=== PATIENT | female | born 1970 | race Caucasian/White ===

== ENCOUNTER 2017-04-17 08:00 | Emergency (ER) | payer OTHER ==
[2017-04-17] VITALS (8 sets, daily range): BP systolic 99–143; BP diastolic 64–83; PULSE 67–94; RESP 13–16; O2SAT 96–100
[~2017-04-17] VITALS: Ht 175.3 cm; Wt 72.7 kg
--- NOTE | 2017-04-17 08:12 | ED.REPORT ---
HPI-GI Bleed Date of Service April 17, 2017 ED Provider: Monico Zambrano DO The patient is a 46 year old female w/ a hx of ulcer and lap band surgery who presents to the ED accompanied by her due to dark, coffee ground vomit for the past 3 days. She had a lap-band surgery 3 years ago in [place]. She had the band loosened a few weeks ago. The pt has not been able to eat or drink anything for several days. Her noticed that she has been getting sick when she tries to eat. She has vomited blood before several years ago when she had a bleeding ulcer. The pt is on protonics, but has not been taking them regularly. Pt says that her coworkers have commented that she has, "not eaten or drank anything for several weeks." Nursing Notes Stated Complaint: ABD PAIN Chief Complaint: Female Abdominal Pain Nursing Notes Reviewed: Yes Allergies: Coded Allergies: No Known Allergies (Unverified , 04/17/17) Scheduled PRN Ondansetron ODT (Zofran ODT) 4 Mg Tablet 4 MG PO Q4H PRN PRN For Nausea General Time Seen by Provider: 08:16 Chief Complaint Chief Complaint: Vomiting coffee grounds Hx Obtained From: Patient Arrived By: Walk-in Onset Occurred: 3 days ago Symptom Duration: Since onset Recent Healthcare: Recent doctor visit, Previous surgery Similar Sx Previous: Yes Past Medical History Past Medical History sciatica Past Surgical History lap-band surgery Smoking History Never Smoker Social History Alcohol Use: Denies alcohol use Drug Use: Denies drug use Review of Systems Review of Systems Note: decreased appetite decreased fluid intake Constitutional: Reports: Fatigue GI: Reports: Nausea, Vomiting Neurologic: Denies: Change LOC Complete sys rev & neg: except as marked. Physical Exam Initial Vital Signs Vital Signs (First) Date Time Temp Pulse Resp B/P Pulse Ox O2 Delivery O2 Flow Rate FiO2 04/17/17 08:03 36.4 75 15 99 Room Air 04/17/17 10:00 127/80 Initial VS: Reviewed General/Constitutional: Awake, Alert, Cooperative Appearance / Presentation: Positive: Pale appears dehydrated no palor Respiratory / Chest: Atraumatic, Breath sounds NL, Breath sounds = bilat Cardiovascular: Heart rate NL, Regular rhythm, Heart sounds NL Tenderness/Guarding/Rebound: Positive: Tender LUQ..., Tender RUQ... Rectum / Perineum: Atraumatic Head / Eyes: Normocephalic, PERRL Skin Skin: Warm, Dry Neurologic: Oriented X3, Speech NL, No motor deficits Back: Atraumatic, Full range of motion Upper Extremity / MS: Full range of motion, No swelling, No deformity Lower Extremity / Pelvis / MS: Full range of motion, No swelling, No deformity Ankle / Foot: Full range of motion, No swelling, No deformity Interpretation & Diagnostics Lab Results Interpretation Result Diagram: 04/17/17 0905 04/17/17 0905 Test 04/17/17 09:05 White Blood Count 6.3th/mm3 (3.8-10.1) Red Blood Count 5.43mil/mm3 (3.90-5.20) Hemoglobin 17.2g/dL (12.0-15.6) Hematocrit 50.1% (35.0-46.0) Mean Corpuscular Volume 92.3fL (81-100) Mean Corpuscular Hemoglobin 31.7pg (27.0-35.0) Mean Corpuscular Hemoglobin Concent 34.3% (32.0-37.0) Red Cell Distribution Width 12.7% (12.3-15.4) Platelet Count 276bil/L (150-400) Neutrophils (%) (Auto) 75.3% (40-74) Lymphocytes (%) (Auto) 15.7% (14-46) Monocytes (%) (Auto) 8.1% (4-12) Eosinophils (%) (Auto) 0.2% (0-5) Basophils (%) (Auto) 0.5% (0-3) Prothrombin Time 10.9sec (8.1-12.5) Prothromb Time International Ratio 1.02ratio Sodium Level 143mEq/L (134-144) Potassium Level 3.5mEq/L (3.5-5.2) Chloride Level 100mEq/L (97-108) Carbon Dioxide Level 26mmol/L (18-29) Blood Urea Nitrogen 9mg/dL (6-24) Creatinine 0.58mg/dL (0.57-1.00) Estimat Glomerular Filtration Rate 160mL/min (>59) Glucose Level 112mg/dL (60-99) Calcium Level 10.0mg/dL (8.5-10.1) Magnesium Level 2.2mg/dL (1.6-2.6) Total Bilirubin 1.1mg/dL (0.0-1.2) Aspartate Amino Transf (AST/SGOT) 18U/L (0-50) Alanine Aminotransferase (ALT/SGPT) 14U/L (0-32) Alkaline Phosphatase 55U/L (25-150) Total Protein 7.0g/dL (6.4-8.4) Albumin 4.2g/dL (3.4-5.0) Hold Bajwa Top Tube Received (Received) ECG Interpretation ECG Interpretation: sinus arrhythmia (rate 71) nonspecific ST changes Time: 08:34 Interpreted by: ED physician CT Abd / Pelvis Interpretation IMPRESSION: 1. Thickening of the gastric antrum, consistent with peptic ulcer disease. Endoscopy recommended to exclude the less likely possibility of neoplasm. 2. Focal low density within the medial segment left hepatic lobe anteriorly. Differential considerations include focal fatty infiltration versus underlying neoplasm. Liver protocol MRI with and without intravenous contrast recommended for further assessment. 3. Bilateral sacroiliitis. 4. Appendix not seen. No evidence of appendicitis. Dictated by: Gabbie Lara M.D. on 04/17/2017 at 11:46 Approved by: Gabbie Lara M.D. on 04/17/2017 at 11:50 Study type: Abdominal CT no contrast Interpretation / Wet Read by: Interpret - Radiologist Procedures Procedure Notes: Lap Band Drainage: Risks benefits and alternatives discussed with the patient. She verbally consented to the procedure. Dr. Juan Francisco Colindres came to ED and performed procedure at 1435 [address] is identified in the left midabdomen, under sterile conditions after 3 rounds of ChloraPrep, 2 attempts were made using a sterile Anaya needle and were unable to obtain any fluid. Another sterile attempt using a 21 gauge 1.5 inch needle was performed in 0.5 mL's of clear fluid was obtained. Sterile dressing applied. Patient tolerated procedure well. She is going to try a PO trial Re-Eval/Medical Decision Med Decision/Clinical Course Ultimately this patient is having complications with her lap band. There is evidence on CAT scan of probably an ulcer without free fluid or other perforation. After discussion with both her doctor in [place] and a on-call bariatric surgeon at [place], and the general surgeon on-call at [facility]. The lap band port was accessed and drained under sterile conditions by our general surgeon, Juan Francisco Colindres. Re-Evaluation/Progress #1: Time of Eval: 10:03 Re-Evaluation/Progress Note: Pt rechecked. Labs are normal. Plan to get catscan and speak to surgeon in [place]. Pt drank some contrast and vomited it back up. Recommmend that pt be transferred to bariatric surgery. Re-Evaluation/Progress #2: Time of Eval: 12:39 Re-Evaluation/Progress Note: Pt rechecked. Informed pt of Dr. Eden's recommendation to be transferred to bariatric surgery. She does not want to be transferred to a facility and wants to wait for her appointment with Dr. Eden at 1030am tomorrow morning. Consultation #1: Referral / Consult Name: Juan Francisco Colindres MD Consulted With: Surgeon Call Returned at: 12:23 Note: Case discussed. Consultation #2: Call Returned at: 12:31 Note: Case discussed with Dr. Maulik Eden, internal medicine. Pt needs to have lapband drained. Consultation #3: Call Returned at: 13:30 Note: Case discussed with Dr. Chase Singletary, bariatric surgery at [facility]. Recommends draining the lap band in the ED. If drainage doesn't solve the problem, then the pt could be transferred. Consultation #4: Referral / Consult Name: Juan Francisco Colindres MD Consulted With: Surgeon Call Returned at: 13:47 Note: Dr. Colindres says he'll come to the ED and try to drain the lap band himself. Counseled Regarding: Diagnosis, Lab results, Need for follow-up, When/why to return to ED Discharge & Departure Impression: Primary Impression: Vomiting Vomiting type: unspecified Vomiting Intractability: unspecified Nausea presence: unspecified Qualified Code: R11.10 - Vomiting, unspecified Disposition: Home Discharge Condition All VS Reviewed: Yes Condition: Stable Additional Instructions: Thank you for entrusting us with your care today. Follow through with your appointment with Dr. Eden tomorrow morning. Return to the Emergency Department for any new or worsening symptoms. I hope you feel better soon! Referrals: [facility] Scribe Attestation Portion of this note were transcribed by Loretta Flak. I, Dr. Zambrano, personally performed the history, physical exam, and medical decision-making: I reviewed and confirmed the accuracy for the information in the transcribed note. Signed by: janee Garcia, 04/17/17 1400 copies to: [facility] Monico Zambrano DO April 17, 2017 08:12 Loretta Falk April 17, 2017 08:23
[2017-04-17] MEDS ORDERED: 0.9% Sodium Chloride 1,000 ML IV ONE ×2 (08:24→09:40)
[2017-04-17] MEDS ORDERED: Pantoprazole 4 mg/mL 10 mL Inj IVPUSH ONE (08:25)
[2017-04-17] MEDS ORDERED: Pantoprazole Inj 80 MG, Pharmacy To Mix 1 EA in 0.9% Sodium Chloride 80 ML IV ONE ×2 (08:25)
[2017-04-17] MEDS ORDERED: Iohexol 300 mg/mL 30 mL Inj PO ONE (08:25)
[2017-04-17] MEDS ORDERED: Ondansetron 2 mg/mL 2 mL Inj IVPUSH PRN (08:35)
[2017-04-17] MEDS ORDERED: Promethazine Inj 25 MG in 0.9% Sodium Chloride-Pha MIX 100 ML IV ONE (09:25)
[2017-04-17 09:26] LABS: BASOPHILS % (AUTO) 0.5 % (0-3); EOSINOPHILS % (AUTO) 0.2 % (0-5); MONOCYTES % (AUTO) 8.1 % (4-12); Mean Corpuscular Hemoglobin 31.7 pg (27.0-35.0); Mean Corpuscular Volume 92.3 fL (81-100); NEUTROPHILS % (AUTO) 75.3 % (40-74); Platelet Count 276 bil/L (150-400)
[2017-04-17 09:42] LABS: INR 1.02 ratio
[2017-04-17 09:49] LABS: Magnesium 2.2 mg/dL (1.6-2.6)
--- NOTE | 2017-04-17 11:52 | DRSVH ---
PROCEDURE: CT ABDOMEN AND PELVIS WITH CONTRAST ([id number]) INDICATIONS: persistent vomiting, h/o lap band TECHNIQUE: After the administration of oral and intravenous contrast, 5 mm thick sections acquired from the diap hragms to the symphysis. 5 mm thick coronal and sagittal reformats were performed. For radiation do se reduction, the following was used: automated exposure control, adjustment of mA and/or kV accordi ng to patient size. COMPARISON: None. FINDINGS: Image quality: Excellent. ABDOMEN: Lung bases: Lung bases are clear. Heart size is normal. Solid organs: Liver and spleen are normal in size. Ill-defined low-density within the medial segment left hepatic lobe anteriorly is present, measuring 35 mm. Gallbladder is within normal limits. Bili adrienne system is non-dilated. Pancreas enhances normally. No adrenal nodules. Kidneys are normal in s ize and enhancement, without hydronephrosis. Peritoneum and bowel: A gastric lap band is present. There is moderate thickening of the gastric ant rum. Small bowel is within normal limits. Appendix is not seen. No evidence of appendicitis. Colon is nondistended. No free fluid or air. Nodes and vessels: No retroperitoneal or mesenteric adenopathy. Aorta and inferior vena cava are no rmal in caliber. Miscellaneous: No ventral hernias. PELVIS: Genitourinary: Bladder wall thickness is normal. An intrauterine device is present. Miscellaneous: No inguinal hernias or adenopathy. Bones: No suspicious bony lesions. Subchondral sclerosis involves the bilateral sacroiliac joints. N o vertebral body compression fractures. IMPRESSION: 1. Thickening of the gastric antrum, consistent with peptic ulcer disease. Endoscopy recommended to e xclude the less likely possibility of neoplasm. 2. Focal low density within the medial segment left hepatic lobe anteriorly. Differential considerati ons include focal fatty infiltration versus underlying neoplasm. Liver protocol MRI with and without intravenous contrast recommended for further assessment. 3. Bilateral sacroiliitis. 4. Appendix not seen. No evidence of appendicitis. Dictated by: Gabbie Lara M.D. on 04/17/2017 at 11:46 Approved by: Gabbie Lara M.D. on 04/17/2017 at 11:50
[2017-04-17] MEDS ORDERED: ProchlorPERazine 5 mg/mL 2 mL Inj IVPUSH ONE (11:55)
[2017-04-17] MEDS ORDERED: ONDA4TAB9 PO (15:21)
== END 2017-04-17 16:44 | disposition home or self-care (01) ==
LOC: SED 08:00
DX: R11.10 Vomiting, unspecified (principal); K27.9 Peptic ulcer, site unspecified, unspecified as acute or chronic, without hemorrhage or perforation; Z98.84 Bariatric surgery status
CPT/HCPCS: 36415; 74177; 80053; 83735; 85025; 85610; 93005; 96361; 96374; 96375; 96376; 99285; J2270; J2405; J2550; J7030; Q9967

== ENCOUNTER 2017-07-11 17:41 | Inpatient (IN) | payer OTHER ==
[~2017-07-11] VITALS: Ht 170.2 cm; Wt 65.6 kg
[~2017-07-11 17:41] MED LIST: ONDA4TAB9 PO
[2017-07-11 17:46] VITALS: BP 121/87; PULSE 88; RESP 15; O2SAT 100
[2017-07-11] MEDS ORDERED: 0.9% Sodium Chloride 1,000 ML IV ONE (18:29)
--- NOTE | 2017-07-11 18:29 | ED.REPORT ---
HPI-Abd Pain F 40 and Over Date of Service Jul 11, 2017 ED Provider: Dr. León The pt is a 46 y/o female with a hx of gastric ulcers and lap band surgery who presents to the ED complaining of burning 9/10 abdominal pain, onset yesterday. Associated sx include weakness, dark coffee ground vomit with hematemesis today, lack of appetite and fluid intake. Nursing Notes Stated Complaint: PAIN AND DEHYDRATION,ULCERS Chief Complaint: Female Abdominal Pain Nursing Notes Reviewed: Yes Allergies: Coded Allergies: No Known Allergies (Unverified , 07/11/17) Scheduled Bupropion ER (Bupropion ER) 300 Mg Tab.er.24h 300 MG PO DAILY Fentanyl 50 mcg/hr Patch (Fentanyl 50 mcg/hr Patch) 50 mcg/hr Patch.td72 1 PATCH TOP Q2DAY Pantoprazole DR (Pantoprazole DR) 40 Mg Tablet.dr 40 MG PO BIDAC Scheduled PRN Hydromorphone (Hydromorphone) 8 Mg Tablet 4-8 MG PO BID PRN PRN BREAKTHROUGH PAIN Zolpidem (Zolpidem) 10 Mg Tablet 10 MG PO HS PRN PRN SLEEP General Time Seen by MD: 18:28 Chief Complaint Abdominal pain Hx Obtained From: Patient Arrived By: Walk-in Sudden in Onset?: Yes Onset Occurred: Yesterday Symptom Duration: Since onset Location: : Diffuse Quality: Burning Radiation: : Does not radiate Severity: Current: Pain level 9 out of 10 Severity: Maximum: Severe Recent Healthcare: Recent doctor visit Similar Sx Previous: Yes Past Medical History Past Medical History sciatica gastric ulcer Past Surgical History lap-band surgery Smoking History Never Smoker Social History Alcohol Use: "Social" Drug Use: Denies drug use Ambulatory Status Independent Review of Systems Reports: lack of appetite and fluid intake Constitutional: Reports: Weakness - generalized GI: Reports: Abdominal pain, Hematemesis, Vomiting Complete sys rev & neg: except as marked. Physical Exam Vital Signs Vital Signs (First) Date Time Temp Pulse Resp B/P Pulse Ox O2 Delivery O2 Flow Rate FiO2 07/11/17 17:46 36.9 88 15 121/87 100 Room Air Initial VS: Reviewed Head / Eyes: Atraumatic, Normocephalic Extremities: Vascular intact, Neuro intact, No swelling, No tenderness Skin: Warm, Dry, No cyanosis Neurologic: Alert, Oriented, Nonfocal General/Constitutional: Awake, Alert Distress / Hydration: Positive: Distress mild Weak Respiratory / Chest: Atraumatic, Breath sounds NL, Breath sounds = bilat, No respiratory distress, No rales, No rhonchi, No wheezing Cardiovascular: Heart rate NL, Regular rhythm, Heart sounds NL, No gallop, No murmurs, No rubs Abdomen: Atraumatic, Soft, No guarding, No rebound Tenderness/Guarding/Rebound: Positive: Tender diffuse Back: Atraumatic, Full range of motion, Painless range of motion Interpretation & Diagnostics Lab Results Interpretation Result Diagram: 07/11/17191907/11/171919 Test 07/11/17 19:20 White Blood Count 4.6th/mm3 (3.8-10.1) Red Blood Count 4.97mil/mm3 (3.90-5.20) Hemoglobin 16.3g/dL (12.0-15.6) Hematocrit 48.4% (35.0-46.0) Mean Corpuscular Volume 97.4fL (81-100) Mean Corpuscular Hemoglobin 32.8pg (27.0-35.0) Mean Corpuscular Hemoglobin Concent 33.7% (32.0-37.0) Red Cell Distribution Width 13.6% (12.3-15.4) Platelet Count 272bil/L (150-400) Neutrophils (%) (Auto) 64.3% (40-74) Lymphocytes (%) (Auto) 25.5% (14-46) Monocytes (%) (Auto) 8.6% (4-12) Eosinophils (%) (Auto) 0.9% (0-5) Basophils (%) (Auto) 0.7% (0-3) Prothrombin Time 10.3sec (8.1-12.5) Prothromb Time International Ratio 0.96ratio Sodium Level 143mEq/L (134-144) Potassium Level 4.1mEq/L (3.5-5.2) Chloride Level 103mEq/L (97-108) Carbon Dioxide Level 25mmol/L (18-29) Blood Urea Nitrogen 8mg/dL (6-24) Creatinine 0.44mg/dL (0.57-1.00) Estimat Glomerular Filtration Rate 220mL/min (>59) Glucose Level 86mg/dL (60-99) Lactic Acid Level 1.7mmol/L (0.4-2.0) Calcium Level 9.4mg/dL (8.5-10.1) Magnesium Level 2.3mg/dL (1.6-2.6) Total Bilirubin 0.8mg/dL (0.0-1.2) Aspartate Amino Transf (AST/SGOT) 20U/L (0-50) Alanine Aminotransferase (ALT/SGPT) 13U/L (0-32) Alkaline Phosphatase 56U/L (25-150) Total Protein 6.8g/dL (6.4-8.4) Albumin 4.1g/dL (3.4-5.0) Lipase 19U/L (13-60) Serum Coags Interpretation Coags all normal CT Abd / Pelvis Interpretation Moderate hiatal hernia with the lap band around the gastric fundus rather than at the gastroesophageal junction which is above the diaphragm. Mildly dilated common bile duct at 9mm with minimal intrahepatic biliary dilatation. No radiopaque stones identified. This may be chronic. Correlate with lab values. Ultrasound may be worthwhile for further evaluation. Signed by Dr. Yamil Mendez 07/11/17 23:28 CBC Interpretation CBC normal except (Hgb high and Hct high) BMP / CMP Interpretation BMP/CMP normal except (low creatinine ) Re-Eval/Medical Decision Source of Hx: Old records Re-Evaluation/Progress : Time of Eval: 21:55 Patient Status: Moderate relief Re-Evaluation/Progress Note: Rechecked pt. Discussed lab results,diagnosis and plan to admit. Pt understands and agrees with the plan for admission. All questions addressed. Consultation #1: Referral / Consult Name: Rafat Ohcoa MD Call Returned at: 20:25 Service Delivery Supervisor: Will see patient, Agrees with eval, Agrees with plan Note: Recommended CT, consulting surgery and admit. He will consult. Consultation #2: Referral / Consult Name: Dusty Kenny MD Consulted With: Hospitalist Call Returned at: 20:51 Service Delivery Supervisor: Will see patient, Agrees with eval, Agrees with plan, Accepts admit Consultation #3: Referral / Consult Name: Mehdi Carbajal MD Consulted With: Surgeon Call Returned at: 01:23 Service Delivery Supervisor: Will see patient, Agrees with eval, Agrees with plan Counseled Regarding: Diagnosis, Lab results, Need for admission Discharge & Departure Primary Impression: Upper GI bleed Additional Impression: Abdominal pain Abdominal location: epigastric Qualified Code: R10.13 - Epigastric pain Disposition: ADMITTED TO HOSPITAL Referrals: [facility] Scribe Attestation Portions of this note were transcribed by Fritz Rosado. I,, personally performed the history,physical exam and medical decision-making;I reviewed and confirmed the accuracy of the information in the transcribed note. Signed by Silva Garcia. 07/11/17 Sameer León DO Jul 11, 2017 18:28 Fritz Rosado Jul 11, 2017 18:35
[2017-07-11] MEDS ORDERED: Ondansetron 2 mg/mL 2 mL Inj IVPUSH PRN (18:30)
[2017-07-11] MEDS ORDERED: Pantoprazole 4 mg/mL 10 mL Inj IVPUSH ONE (18:30)
[2017-07-11 19:31] LABS: BASOPHILS % (AUTO) 0.7 % (0-3); EOSINOPHILS % (AUTO) 0.9 % (0-5); MONOCYTES % (AUTO) 8.6 % (4-12); Mean Corpuscular Hemoglobin 32.8 pg (27.0-35.0); Mean Corpuscular Volume 97.4 fL (81-100); NEUTROPHILS % (AUTO) 64.3 % (40-74); Platelet Count 272 bil/L (150-400)
[2017-07-11] MEDS ORDERED: Promethazine 25 mg/mL Inj ONE (19:32)
[2017-07-11] MEDS: HYDROmorphone 0.5 mg/0.5 mL iSecure Syringe IVPUSH PRN (19:44)
[2017-07-11 19:45] LABS: INR 0.96 ratio
[2017-07-11 19:52] LABS: Magnesium 2.3 mg/dL (1.6-2.6)
[2017-07-11 20:30] VITALS: BP 128/84; PULSE 92; RESP 15; O2SAT 100
[2017-07-11] MEDS ORDERED: Iohexol 300 mg/mL 30 mL Inj PO ONE (22:00)
[2017-07-11] MEDS ORDERED: BUPR-97 PO (22:07)
[2017-07-11] MEDS ORDERED: HYDR8TAB PO (22:07)
[2017-07-11] MEDS ORDERED: PANT40TA3 PO (22:07)
[2017-07-11] MEDS ORDERED: FENT1PAT9 TOP (22:07)
[2017-07-11] MEDS ORDERED: BUPR300T52 PO (22:07)
[2017-07-11] MEDS ORDERED: ZOLP10TA5 PO (22:07)
[2017-07-11 22:30] VITALS: BP 130/88; PULSE 96; RESP 15; O2SAT 100
[2017-07-11 23:10] LABS: APPEARANCE,URINE TURBID (CLEAR,HAZY); COLOR,URINE YELLOW (YELLOW); OCCULT BLOOD,URINE NEGATIVE (NEGATIVE); PH,URINE 7.5 (5.0-8.0); UROBILINOGEN,URINE 2 mg/dL (NORMAL)
[2017-07-12] VITALS (11 sets, daily range): BP systolic 116–166; BP diastolic 66–110; PULSE 65–97; RESP 10–21; O2SAT 98–100
[2017-07-12] MEDS: HYDROmorphone 0.5 mg/0.5 mL iSecure Syringe IVPUSH PRN (00:25)
[2017-07-12] MEDS ORDERED: Alum-Mag Hydrox-Simeth 30 mL Suspension PO PRN (02:30)
[2017-07-12] MEDS ORDERED: Polyethylene Glycol (PEG) 17 Gm Powder PO PRN (02:30)
[2017-07-12] MEDS ORDERED: Pantoprazole Inj 80 MG in 0.9% Sodium Chloride 80 ML IV SCH (02:35)
--- NOTE | 2017-07-12 02:42 | PCM.HPMED ---
Subjective Date of Service Jul 12, 2017 Primary Provider: Admitting Physician: Dusty Kenny MD Primary Care Physician: Nopal Attending Physician: Dusty Kenny MD Chief Complaint: Abdominal pain History of Present Illness: Alyx Muñoz is a 46-year-old female with a history of gastric ulcers and lap band placement who presented to the emergency department complaining of abdominal pain that started yesterday. She says the pain is a burning sensation , rated 9 out of 10, in the upper quadrants of her abdomen. She reports feeling fatigued and weak throughout the past week, and has had a decrease in appetite and fluid intake for a couple months. She decided to come to the ED after an episode of dark coffee-ground emesis. She denies any fevers/chills, chest pain, palpitations, shortness of breath, diarrhea, melena, or hematochezia. Review of Systems: A complete review of systems was obtained and negative except as in the history of present illness. Allergies Coded Allergies: No Known Allergies (Unverified , 07/11/17) Home Medications Bupropion ER (Bupropion ER) 300 Mg Tab.er.24h 300 MG PO DAILY Fentanyl 50 mcg/hr Patch (Fentanyl 50 mcg/hr Patch) 50 mcg/hr Patch.td72 1 PATCH TOP Q2DAY Pantoprazole DR (Pantoprazole DR) 40 Mg Tablet.dr 40 MG PO BIDAC Scheduled PRN Hydromorphone (Hydromorphone) 8 Mg Tablet 4-8 MG PO BID PRN PRN BREAKTHROUGH PAIN Zolpidem (Zolpidem) 10 Mg Tablet 10 MG PO HS PRN PRN SLEEP PMH Gastric ulcer Depression Sciatica Surgical History Lap band surgery Family History Father of alcoholism related issues. Mother is alive and healthy. Social History Occupation: manager event Hx Alcohol Use: Yes (social) Hx Substance Use: No Hx Tobacco Use: No Smoking Status: Never Smoker Living Arrangement: with Family Exam Vital Signs Vital Sign - Last Date Time Temp Pulse Resp B/P Pulse Ox O2 Delivery O2 Flow Rate FiO2 07/11/17 22:30 36.9 96 15 130/88 100 Room Air Intake and Output 07/11/17 07/11/17 07/12/17 Cumulative From/Thru 15:00 23:00 07:00 07/11/17 17:46 - 07/11/17 19:24 Intake Total 2000 ml 2000 ml Balance 2000 ml 2000 ml Intake IV Total 2000 ml 2000 ml Exam Gen.: Age-appropriate female lying in bed in no acute distress HEENT: NCAT, PERRLA, EOMI. Membranes pink but dry. No exudate or cobblestoning present. Neck: Supple, no JVD or thyromegaly CV: Regular rate and rhythm no murmurs, rubs, gallops. Pulmonary: Clear to auscultation bilaterally, no wheezes, rales, rhonchi. Abd: Soft, diffusely tender to palpation. Bowel sounds present throughout. No rebound or guarding. Extremities: No edema, cyanosis, clubbing. Neuro: AOx3. CN II through 12 intact. Muscle strength 4-5 globally, without focal deficit. Psych: Normal mood and affect. Lab and Diagnostics Result Diagram: 07/11/17191907/11/171919 Microbiology Urine culture pending X-Rays, CTs and MRIs Abdominal CT 07/11/17 Moderate hiatal hernia with the lap band around the gastric fundus rather than at the gastroesophageal junction which is above the diaphragm. Mildly dilated common bile duct at 9mm with minimal intrahepatic biliary dilatation. No radiopaque stones identified. This may be chronic. Correlate with lab values. Ultrasound may be worthwhile for further evaluation. Signed by Dr. Yamil Mendez 07/11/17 23:28 Assessment & Plan Alyx Muñoz is a 46-year-old female with a history of gastric ulcers and lap band placement who presented to the emergency department complaining of abdominal pain that started yesterday with one episode of coffee-ground hematemesis. Upper GI bleed, present on admission. Acute. Ongoing. - Likely due to gastric ulcers with her history, but there is a question of lap band placement/possible erosion - Patient is pantoprazole 40 mg twice a day with questionable compliance - Dr. Bell of Gastroenterology was consulted, appreciate his expertise - Dr. Garza of Surgery consulted, appreciate his expertise - Protonix drip ordered - NPO for now - H&H stable thus far; will trend with AM labs Abdominal pain, present on admission. Acute. Ongoing. - Likely due to gastric ulcers with her history, but there is a question of lap band placement/possible erosion - Continue home fentanyl patch - IV Dilaudid 0.5-1mg mg every 4h for breakthrough pain Depression, present on admission. Chronic. - Continue bupropion 300 mg daily when appropriate Sciatica, present on admission. Chronic. - Continue home fentanyl patch - Holding home PO Dilaudid; resume when appropriate Insomnia, present on admission. Chronic. - Continue zolpidem 10 mg at night when appropriate Acetaminophen as needed for mild pain, fever, headache. Bowel regimen as needed. Zofran for nausea as needed. Subcutaneous heparin held for GI bleed. SCDs ordered. Patient status: Patient was admitted to the inpatient service with likely length of stay >2 midnights due to severity of presenting symptoms, complex medical workup, and overall treatment plan. GI Prophylaxis: Proton Pump Inhibitor (Protonix drip) VTE Mechanical Devices: Intermittant Pneumatic CD Resuscitation Status: CPR: Attempt Resuscitation Attending Statement The patient was seen and examined together with Dr. Márquez on 07/12 and I agree with the history, exam and plan as outlined in the note above. Nacho Márquez DO Jul 12, 2017 02:42 Dusty Kenny MD Jul 12, 2017 04:07
[2017-07-12] MEDS: HYDROmorphone 0.5 mg/0.5 mL iSecure Syringe IVPUSH SCH ×5 (03:19→22:23)
[2017-07-12] MEDS: Ondansetron 2 mg/mL 2 mL Inj IVPUSH PRN ×2 (03:25→20:25)
[2017-07-12] MEDS: 0.9% Sodium Chloride 1,000 ML IV SCH ×4 (03:27→15:44)
[2017-07-12] MEDS: MetoCLOpramide 5 mg/mL 2 mL Inj IVPUSH PRN ×4 (04:02→21:17)
--- NOTE | 2017-07-12 04:27 | NUR ---
Admit to room 3009 with upper GI Bleed. Pain 10/, N/V. VSS, 98% O2 sat on RA, BP 136/88. Oriented to room and POC on whiteboard. Refusing SCD's, gave Dilaudid, Zofran, Reglan to good effect.
--- NOTE | 2017-07-12 04:31 | NUR ---
Med Rec completed in ED by pharmacist. No known allergies.
[2017-07-12 06:53] LABS: BASOPHILS % (AUTO) 0.7 % (0-3); MONOCYTES % (AUTO) 9.3 % (4-12); Mean Corpuscular Hemoglobin 33.4 pg (27.0-35.0); Mean Corpuscular Volume 99.2 fL (81-100); NEUTROPHILS % (AUTO) 66.4 % (40-74); Platelet Count 190 bil/L (150-400)
--- NOTE | 2017-07-12 07:23 | DRSVH ---
PROCEDURE: CT ABDOMEN AND PELVIS WITH CONTRAST ([id number]) INDICATIONS: abdominal pain, lap band TECHNIQUE: After the administration of intravenous contrast, 5 mm thick sections acquired from the diaphragm to the symphysis. 5 mm coronal and sagittal reformats were acquired. For radiation dose reduction, the following was used: automated exposure control, adjustment of mA and/or kV according to patient josafat boyer. COMPARISON: [facility], CT, CT ABD PELVIS W CON, 04/17/2017, 11:30. FINDINGS: Image quality: Excellent. ABDOMEN: Lung bases: Lung bases are clear. Heart size is normal. Solid organs: Wedge-shaped area of low density adjacent to the fissure for the ligamentum teres measu res 3.8 x 2.4 CM. Minimal intrahepatic biliary ductal dilatation with stable prominence of the extrah epatic bile duct. No obstructive lesion identified. The gallbladder is mildly distended but otherwise radiographically normal. The pancreas, spleen, adrenal glands and kidneys are normal. Uterus is pres ent with an IUD in place.. Peritoneum and bowel: Focal narrowing of the hepatic flexure of the colon may represent normal decomp ressed bowel. No finding was present at this site on the March 2017 study (se 2 im 33). Otherwise the c olon is normal. Lap band is present. There is greater than expected amount of stomach proximal to the band where oral contrast pools possibly placing the patient at risk for aspiration. Persistent gastr ic antrum thickening. Normal small bowel. Nodes and vessels: No retroperitoneal or mesenteric adenopathy by size criteria. Aorta and inferior vena cava are normal in size. Miscellaneous: No ventral hernias. PELVIS: Genitourinary: Bladder wall thickness is normal. Miscellaneous: No inguinal hernias or adenopathy. Bones: No suspicious bony lesions. No vertebral body compression fractures. IMPRESSION: 1. Gastric lap band has slipped distally with a resulting small hiatal hernia which contains oral con trast and may place the patient at risk for aspiration. 2. Wedge-shaped area of low-density liver most consistent with fatty infiltration of the liver. Under lying malignancy is unlikely. Recommend MRI with and without contrast for confirmation. 3. There is minimal intrahepatic biliary ductal dilatation with stable prominence of the extrahepatic bile duct. No obstructing lesion identified. MRCP could evaluate this finding if needed and could be performed at the same visit as the recommended abdominal MRI. 4. There are no discrepancies with the preliminary report. Dictated by: Musa Drake M.D. on 07/12/2017 at 7:12 Approved by: Musa Drake M.D. on 07/12/2017 at 7:21
[2017-07-12] MEDS ORDERED: fentaNYL-PF 50 mCg/mL 2 mL Inj IVPUSH PRN (08:40)
--- NOTE | 2017-07-12 09:25 | NUR ---
GI consult GI Dr. bartlett at bed side this morning. Carmella from endoscopy called and states," upper endoscopy scheduled for 1100 today, keep patient NPO." Report given to Carmella in endo. patient aware.
--- NOTE | 2017-07-12 10:36 | NUR ---
Off unit patient left unit at 1036 for upper endoscopy.
--- NOTE | 2017-07-12 11:08 | PCM.CHPMED ---
Subjective Date of Service: Jul 12, 2017 Primary Physician: Admitting Physician: Dusty Kenny MD Primary Care Physician: Adriel Attending Physician: Elyse Ramsey DO Admit Status: From the Emergency Department Chief Complaint: Chief Complaint: Abdominal pain History of Present Illness: Alyx Muñoz is a 46-year-old lady with a history of gastric ulcers and lap band placement who presented to the emergency department with the complaint of abdominal pain with coffee-ground emesis that started yesterday. She states that she has actually had intermittent abdominal pain with decreased appetite for several months. However, she notes that because she was loosing so much weight it was not bothersome to her. It wasn't until yesterday when the pain became more intense that she thought she better come in. Associated symptoms include fatigue, generalized weakness, decreased fluid intake and subjective chills. She denies chest pain, palpitations, diarrhea, melena or hematochezia. At presentation she was afebrile and vitals were normal. Labs including CBC, CMP , lipase and lactic acid were unremarkable. Abdominal CT showed a moderate hiatal hernia with the lap band around the gastric fundus rather than at the gastroesophageal junction and a mildly dilated common bile duct. Review of Systems: A comprehensive review of systems was conducted with the patient and found to be negative except as above in the History of Present Illness. PMH Past Medical History Gastric ulcer Depression Sciatica Surgical History Lap band surgery Home Medications Bupropion ER 300 MG PO DAILY Fentanyl 50 mcg/hr Patch 1 PATCH TOP Q2DAY Pantoprazole DR 40 MG PO BIDAC Hydromorphone 4-8 MG PO BID PRN BREAKTHROUGH PAIN Zolpidem 10 MG PO HS PRN SLEEP Allergies: Coded Allergies: No Known Allergies (Unverified , 07/11/17) Family History Family History Father of alcoholism related issues. Mother is alive and healthy. Social History Occupation: beauty shop manager Hx Alcohol Use: Yes (social)Hx Substance Use: NoHx Tobacco Use: No Smoking Status: Never Smoker Living Arrangement: with Family Exam Vital Signs Vital Sign - Last Date Time Temp Pulse Resp B/P Pulse Ox O2 Delivery O2 Flow Rate FiO2 07/12/17 04:07 37.1 97 14 136/88 98 Room Air Intake and Output 07/11/17 07/11/17 07/12/17 Cumulative From/Thru 15:00 23:00 07:00 07/11/17 17:46 - 07/12/17 06:00 Intake Total 2000 ml 250 ml 2250 ml Balance 2000 ml 250 ml 2250 ml Intake IV Total 2000 ml 250 ml 2250 ml General: Alert, Oriented X3, Cooperative, No acute distress Head: Normocephalic, atraumatic. External ears normal. Eyes: PERRLA, EOMI. Anicteric sclerae. Mouth: Mouth normal, Mucous membranes moist/pink Neck: Neck supple with full range of motion. Lungs: Clear to auscultation bilaterally Cardiovascular: Regular rate/rhythm. No murmurs/rubs/gallops Abdomen: Soft, nondistended, diffusely tender to palpation. No rebound or guarding. Normoactive bowel tones. Extremities: No cyanosis/clubbing/edema bilaterally Neurological: Grossly neurologically intact. Normal speech Lab and Diagnostics Labs Laboratory Tests Test 07/11/17 19:20 07/11/17 22:42 07/12/17 06:07 White Blood Count 4.6th/mm3 (3.8-10.1) 5.5th/mm3 (3.8-10.1) Red Blood Count 4.97mil/mm3 (3.90-5.20) 3.77mil/mm3 (3.90-5.20) Hemoglobin 16.3g/dL (12.0-15.6) 12.6g/dL (12.0-15.6) Hematocrit 48.4% (35.0-46.0) 37.4% (35.0-46.0) Mean Corpuscular Volume 97.4fL (81-100) 99.2fL (81-100) Mean Corpuscular Hemoglobin 32.8pg (27.0-35.0) 33.4pg (27.0-35.0) Mean Corpuscular Hemoglobin Concent 33.7% (32.0-37.0) 33.7% (32.0-37.0) Red Cell Distribution Width 13.6% (12.3-15.4) 13.3% (12.3-15.4) Platelet Count 272bil/L (150-400) 190bil/L (150-400) Neutrophils (%) (Auto) 64.3% (40-74) 66.4% (40-74) Lymphocytes (%) (Auto) 25.5% (14-46) 21.4% (14-46) Monocytes (%) (Auto) 8.6% (4-12) 9.3% (4-12) Eosinophils (%) (Auto) 0.9% (0-5) 2.0% (0-5) Basophils (%) (Auto) 0.7% (0-3) 0.7% (0-3) Prothrombin Time 10.3sec (8.1-12.5) Prothromb Time International Ratio 0.96ratio Sodium Level 143mEq/L (134-144) 143mEq/L (134-144) Potassium Level 4.1mEq/L (3.5-5.2) 3.9mEq/L (3.5-5.2) Chloride Level 103mEq/L (97-108) 108mEq/L (97-108) Carbon Dioxide Level 25mmol/L (18-29) 22mmol/L (18-29) Blood Urea Nitrogen 8mg/dL (6-24) 7mg/dL (6-24) Creatinine 0.44mg/dL (0.57-1.00) 0.45mg/dL (0.57-1.00) Estimat Glomerular Filtration Rate 220mL/min (>59) 214mL/min (>59) Glucose Level 86mg/dL (60-99) 81mg/dL (60-99) Lactic Acid Level 1.7mmol/L (0.4-2.0) Calcium Level 9.4mg/dL (8.5-10.1) 8.4mg/dL (8.5-10.1) Magnesium Level 2.3mg/dL (1.6-2.6) Total Bilirubin 0.8mg/dL (0.0-1.2) 0.6mg/dL (0.0-1.2) Aspartate Amino Transf (AST/SGOT) 20U/L (0-50) 13U/L (0-50) Alanine Aminotransferase (ALT/SGPT) 13U/L (0-32) 8U/L (0-32) Alkaline Phosphatase 56U/L (25-150) 40U/L (25-150) Total Protein 6.8g/dL (6.4-8.4) 4.4g/dL (6.4-8.4) Albumin 4.1g/dL (3.4-5.0) 3.1g/dL (3.4-5.0) Lipase 19U/L (13-60) Urine Color Yellow (YELLOW) Urine Appearance Turbid (CLEAR,HAZY) Urine pH 7.5 (5.0-8.0) Urine Specific [place] 1.018 (1.003-1.035) Urine Protein Negativemg/dL (NEG,TRACE) Urine Glucose (UA) Negativemg/dL (NEGATIVE) Urine Ketones 40mg/dL (NEGATIVE) Urine Occult Blood Negative (NEGATIVE) Urine Nitrite Negative (NEGATIVE) Urine Bilirubin Negative (NEGATIVE) Urine Urobilinogen 2mg/dL (NORMAL) Urine Leukocyte Esterase Moderate (NEGATIVE) Urine RBC 0-2/hpf (0-2) Urine WBC 0-5/hpf (0-5) Urine Epithelial Cells Few/hpf (NONE-MOD) Urine Crystals Amorphous phosphates Urine Bacteria Few/hpf (NONE-FEW) Urine Hyaline Casts None/lpf (NONE) Urine Granular Casts None seen (NONE SEEN) Urine Waxy Casts None seen (NONE SEEN) Urine Red Blood Cell Casts None seen (NONE SEEN) Urine White Blood Cell Casts None seen (NONE SEEN) Urine Mucus Present (None Seen) Urine Trichomonas None seen (NONE SEEN) Urine Yeast None (NONE SEEN) Urinalysis Comment None Urine Culture Reflexed Indicated Microbiology 07/11/17 Urine Culture -No growth to date Result Diagram: 07/12/17 0607 07/12/17 0607 X-Rays, CTs and MRIs 07/12/17 - CT ABDOMEN AND PELVIS WITH CONTRAST IMPRESSION: 1. Gastric lap band has slipped distally with a resulting small hiatal hernia which contains oral contrast and may place the patient at risk for aspiration. 2. Wedge-shaped area of low-density liver most consistent with fatty infiltration of the liver. Underlying malignancy is unlikely. Recommend MRI with and without contrast for confirmation. 3. There is minimal intrahepatic biliary ductal dilatation with stable prominence of the extrahepatic bile duct. No obstructing lesion identified. MRCP could evaluate this finding if needed and could be performed at the same visit as the recommended abdominal MRI. 4. There are no discrepancies with the preliminary report. Approved by: Musa Drake M.D. on 07/12/2017 at 7:21 Assessment & Plan Assessment 46y/o female with a history of gastric ulcers and lap band placement who presented to the emergency department with the complaint of abdominal pain with coffee-ground emesis. GI consulted for probable upper GI bleeding. Acute on chronic abdominal pain with coffee-ground emesis in a patient with a lap band and history of gastric ulcers. -Possibly secondary to gastric and/or duodenal ulcers. Differential includes: esophagitis, gastritis, vascular ectasia, and lap band erosion. RECOMMENDATIONS: -EGD today -Continue Protonix bid -Monitor Hb/Hct -hold NSAIDs -Continue home pain medications Additional problems managed by primary hospitalist. Depression Sciatica Insomnia Problems: GI Prophylaxis: Proton Pump Inhibitor (Protonix drip) VTE Mechanical Devices: Intermittant Pneumatic CD Resuscitation Status: CPR: Attempt Resuscitation Kiera Maza DO Jul 12, 2017 08:06
--- NOTE | 2017-07-12 11:43 | CONS ---
[address] [address] CONSULTATION REPORT PATIENT: SHEREE WALTON : 1970 MR#: [id number] ADMIT: 07/11/2017 JOB ID: [id number] DATE OF SERVICE: 07/12/2017 CHIEF COMPLAINT: Abdominal discomfort and hematemesis in a 46-year-old woman with a Lap-Band in place. REQUESTING PHYSICIAN: This consultation is requested by Dr. León of the emergency department. HISTORY OF PRESENT ILLNESS: This is a 46-year-old woman who has a history of morbid obesity and, three years ago, went to [facility] and had a Lap-Band placed by Dr. Gaffney. She subsequently lost greater than 100 pounds and has been satisfied with her weight loss. However, she has had increasing dysphagia and has been told that she has peptic ulcers. She does report that she had ulcers prior to the operation itself. She has been told she should take pantoprazole, but she has not been compliant with this and only takes it on a p.r.n. basis for abdominal discomfort. She says her last upper endoscopy was in [place], [place] in February 2017. Additionally, she says her Lap-Band has been managed by Dr. Maulik Eden, who is an mineral technologist who lives in [place], where the patient is originally from but does not lives. She was here in the emergency department in March 2017. At that time had similar symptoms, and her Lap-Band was decompressed. It has remained decompressed since March. Her symptoms upon presentation today included dysphagia and regurgitation, and she reports small volume coffee-grounds emesis. Vital signs have been stable, abdomen is benign, and she has not had additional vomiting since she arrived here at the hospital. Labs are unremarkable including white blood cell count of 5.5 and hematocrit 37. PAST MEDICAL HISTORY: Peptic ulcer disease, depression, sciatica. PAST SURGICAL HISTORY: Open appendectomy 20 years ago, laparoscopic gastric banding three years ago by Dr. Gaffney in [facility], foot surgery. MEDICATIONS: Pantoprazole which she takes p.r.n., rather than daily as prescribed. Ambien, fentanyl patch and bupropion. ALLERGIES: No known drug allergies. FAMILY HISTORY: There is no family history of diabetes or coronary artery disease, and no other diseases that run in the family. SOCIAL HISTORY: She does not smoke. She rarely drinks alcohol and does not use recreational drugs. 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 REVIEW OF SYSTEMS: Eleven-point review of systems is positive as noted in the HPI and is otherwise negative. PHYSICAL EXAMINATION: Vital signs are within normal limits. General: Awake, alert, in no acute distress. Head: Normocephalic. Neck: Supple. Cardiac: Regular rate and rhythm, no murmurs, rubs, or gallops. Respiratory: Clear to auscultation bilaterally. Abdomen: Soft, nontender, nondistended. Incisions have turned into scars which are well healed. Extremities: No edema. Psychiatric: Normal cognition and judgment. Neurologic: No gross deficits. Extremities: No edema. LABORATORIES: CBC and comprehensive metabolic panel are within normal limits with the exception of an albumin of 3.1. Lactate is 1.7. IMAGING: CT scan of the abdomen shows that the gastric band has slipped somewhat distally compared to prior, and there is oral contrast retained above the level of the Lap-Band. There is no sign of gastric ischemia or perforation. ASSESSMENT: A 46-year-old woman with dysphagia, regurgitation and coffee-grounds emesis associated with a history of peptic ulcers associated with her Lap-Band. She is not compliant on her proton pump inhibitor. RECOMMENDATIONS: 1. I have strongly recommended that she maintain compliance on her PPI if she desires to keep her Lap-Band, which she very much would like to, given that she has benefited from weight loss with regards to this. 2. The Lap-Band has already been decompressed and should remain as such. 3. Agree with upper endoscopy by the Gastroenterology service. 4. She should be referred to a bariatric surgeon for consideration of Lap-Band removal plus/minus conversion to another bariatric procedure such as gastric bypass. The patient strongly requests that her Lap-Band not be removed, and I do not intend to do this on this hospitalization. I would only proceed in that manner if there were signs of gastric ischemia, perforation, or other severe complications, which she does not appear to have at this time.
--- NOTE | 2017-07-12 11:48 | ENDO ---
[address] [address] ENDOSCOPY PROCEDURE PATIENT: SHEREE WALTON : 1970 MR#: [id number] ADMIT: 07/11/2017 JOB ID: [id number] TITLE OF OPERATION: Esophagogastroduodenoscopy (EGD) with biopsy. PREOPERATIVE DIAGNOSIS(ES): Hematemesis. POSTOPERATIVE DIAGNOSIS(ES): 1. Mild distal esophagitis. 2. Mild nonerosive gastritis. 3. Status post lap band in good position and intact seen on retroflexion. ANESTHESIA: Fentanyl 100 mcg, Versed 4 mg IV administered. COMPLICATIONS: None. BLOOD LOSS: Minimal. DESCRIPTION OF PROCEDURE: After the risks and benefits had been explained to the patient, informed consent was obtained. After anesthesia was administered the upper endoscope was inserted into the mouth, intubating through the esophagus, stomach, and second portion of duodenum, and the mucosa carefully examined. After the procedure was done, the scope withdrawn and the procedure terminated. FINDINGS: Upon inspection of the esophagus, there was mild distal esophagitis that was seen. Z-line located 40 cm from incisors. Upon entering the stomach, there was a mild nonerosive gastritis that was seen. No masses or ulcers were seen. Retroflexion showed an intact lap band that was placed. Duodenal bulb, 1st and 2nd portion normal. Biopsies taken in the antrum and body of the stomach. IMPRESSIONS: 1. Intact lap band. 2. Mild distal esophagitis. 3. Mild nonerosive gastritis. RECOMMENDATION: 1. Await pathology results. 2. Please stop Protonix drip and transition to Protonix 40 mg by mouth twice a day. 3. Okay to start clear liquid diet. Advance as tolerated.
--- NOTE | 2017-07-12 11:51 | NUR ---
Back from endo patient is back from endoscopy at 1151.
--- NOTE | 2017-07-12 14:55 | NUR ---
Social Work-initial assessment/readiness for discharge/ multidisciplinary rounds: Data:See initial assessment. Pt is a 46 y/o female who was admitted on 07/11/17 for upper GI bleed per H&P. Pt's insurance is [employer] out of State and PCP is not listed. EMR Reviewed. SW met with pt and Abran at bedside, SW role explained. Pt is alert and oriented x3. Pt and reside in a single level home in [place] where pt remains independent with ADLS. Pt drives and does not use any DME. Pt has no HH or SNF history. Pt has no bed bug exterminator care or VA benefits. SW discussed DPOA/advanced directive, pt has not completed this, SW provided pt with paperwork. Pt continues to work at baseline. Pt discussed in morning rounds, no concerns noted around pt's capacity for self care from RN or MD. Pt has been up independent in her room. Pt's to provide transport home. SW provided pt with discharge planning checklist and encouraged them to call with any questions, phone number provided on white board in room. No anticipated discharge needs. SW will continue to follow if needs arise. Assessment:Pt who is independent at baseline. Plan:Pt to discharge home when medically stable via POV. No anticipated discharge needs. SW will continue to follow if needs arise. SUNIL Stone Addendum: 07/12/17 at 1500 by MADONNA RODRIGUEZ SS Amended: Links added. Addendum: 07/12/17 at 1501 by MADONNA RODRIGUEZ SS SW asked pt about PCP, pt states she currently does not have one and is working on obtaining one. Pt declined any resources for this. SUNIL Stone
[2017-07-12] MEDS: Sodium Chloride LOK Flush 10 mL Syringe IV SCH (15:50)
[2017-07-12] MEDS: Pantoprazole 40 mg ER24 Tablet PO SCH (16:44)
[2017-07-13] VITALS (7 sets, daily range): BP systolic 121–186; BP diastolic 70–86; PULSE 60–83; RESP 18; O2SAT 97–100
[2017-07-13] MEDS: 0.9% Sodium Chloride 1,000 ML IV SCH ×4 (02:13→19:12)
[2017-07-13] MEDS: HYDROmorphone 0.5 mg/0.5 mL iSecure Syringe IVPUSH SCH ×3 (02:26→09:54)
[2017-07-13] MEDS: Sodium Chloride LOK Flush 10 mL Syringe IV SCH ×3 (02:26→17:40)
[2017-07-13] MEDS: MetoCLOpramide 5 mg/mL 2 mL Inj IVPUSH PRN ×3 (03:06→19:09)
--- NOTE | 2017-07-13 06:46 | NUR ---
Pain/Nausea Medicating pt with 1 mg IV dilaudid Q4 hours this shift. Pt stating burning pain to abdomen 06/29 this shift, pt resting in bed with eyes closed after medication admin. Medicating pt with reglan PRN nausea. Pt did have some emesis in emesis bag, did not visualize. Call light within reach, frequent rounding.
[2017-07-13] MEDS: Pantoprazole 40 mg ER24 Tablet PO SCH (07:44)
[2017-07-13] MEDS: Ondansetron 2 mg/mL 2 mL Inj IVPUSH PRN ×3 (07:44→21:53)
--- NOTE | 2017-07-13 08:24 | PCM.PNMED ---
Subjective Date of Service Jul 13, 2017 Subjective GASTROENTEROLOGY PROGRESS NOTE: Attending Physician: Reginaldo Simon MD Resident Physician: Kiera Maza DO No acute events overnight. Per nursing, patient continues to report abdominal pain and nausea, relieved with dilaudid and reglan. EGD yesterday showed mild distal esophagitis, mild nonerosive gastritis and good position of lap band. This morning the patient is somewhat anxious and states that she is worried she won't be able to keep oral medications down. She states that she has had nausea and vomiting for the last year and she was unable to keep the antacid medication in her stomach. Her abdominal pain is tolerable today but she also states that she has not eaten much. She denies fever, chills, diarrhea or constipation. She reports mild dysuria and increased urinary frequency for the past several weeks. Denies flank pain and hematuria. Exam Vital Signs Vital Sign - Last Date Time Temp Pulse Resp B/P Pulse Ox O2 Delivery O2 Flow Rate FiO2 07/13/17 06:38 65 07/13/17 05:22 36.6 18 135/85 97 Room Air Intake and Output 07/12/17 07/12/17 07/13/17 Cumulative From/Thru 15:00 23:00 07:00 07/11/17 17:46 - 07/13/17 06:28 Intake Total 200 ml 2304 ml 1154 ml 5908 ml Output Total 550 ml 550 ml Balance 200 ml 1754 ml 1154 ml 5358 ml Intake Oral 318 ml 318 ml IV Total 200 ml 1986 ml 1154 ml 5590 ml Output Urine Total 550 ml 550 ml # Bowel Movements 0 0 Exam HEENT: Normocephalic, atraumatic.PERRLA. Mucous membranes moist/pink Neck: Neck supple with full range of motion. No lymphadenopathy. Lungs: Clear to auscultation bilaterally Cardiovascular: Regular rate/rhythm. No murmurs/rubs/gallops Abdomen: Soft, nondistended, diffusely tender to palpation. No rebound or guarding. Normoactive bowel tones. Extremities: No cyanosis/clubbing/edema bilaterally Neurological: Grossly neurologically intact. Normal speech IVs and Medications Medications Reviewed: Medications were reviewed in detail Lab and Diagnostics Test 07/11/17 19:20 07/11/17 22:42 07/12/17 06:07 White Blood Count 4.6th/mm3 (3.8-10.1) 5.5th/mm3 (3.8-10.1) Red Blood Count 4.97mil/mm3 (3.90-5.20) 3.77mil/mm3 (3.90-5.20) Hemoglobin 16.3g/dL (12.0-15.6) 12.6g/dL (12.0-15.6) Hematocrit 48.4% (35.0-46.0) 37.4% (35.0-46.0) Mean Corpuscular Volume 97.4fL (81-100) 99.2fL (81-100) Mean Corpuscular Hemoglobin 32.8pg (27.0-35.0) 33.4pg (27.0-35.0) Mean Corpuscular Hemoglobin Concent 33.7% (32.0-37.0) 33.7% (32.0-37.0) Red Cell Distribution Width 13.6% (12.3-15.4) 13.3% (12.3-15.4) Platelet Count 272bil/L (150-400) 190bil/L (150-400) Neutrophils (%) (Auto) 64.3% (40-74) 66.4% (40-74) Lymphocytes (%) (Auto) 25.5% (14-46) 21.4% (14-46) Monocytes (%) (Auto) 8.6% (4-12) 9.3% (4-12) Eosinophils (%) (Auto) 0.9% (0-5) 2.0% (0-5) Basophils (%) (Auto) 0.7% (0-3) 0.7% (0-3) Prothrombin Time 10.3sec (8.1-12.5) Prothromb Time International Ratio 0.96ratio Sodium Level 143mEq/L (134-144) 143mEq/L (134-144) Potassium Level 4.1mEq/L (3.5-5.2) 3.9mEq/L (3.5-5.2) Chloride Level 103mEq/L (97-108) 108mEq/L (97-108) Carbon Dioxide Level 25mmol/L (18-29) 22mmol/L (18-29) Blood Urea Nitrogen 8mg/dL (6-24) 7mg/dL (6-24) Creatinine 0.44mg/dL (0.57-1.00) 0.45mg/dL (0.57-1.00) Estimat Glomerular Filtration Rate 220mL/min (>59) 214mL/min (>59) Glucose Level 86mg/dL (60-99) 81mg/dL (60-99) Lactic Acid Level 1.7mmol/L (0.4-2.0) Calcium Level 9.4mg/dL (8.5-10.1) 8.4mg/dL (8.5-10.1) Magnesium Level 2.3mg/dL (1.6-2.6) Total Bilirubin 0.8mg/dL (0.0-1.2) 0.6mg/dL (0.0-1.2) Aspartate Amino Transf (AST/SGOT) 20U/L (0-50) 13U/L (0-50) Alanine Aminotransferase (ALT/SGPT) 13U/L (0-32) 8U/L (0-32) Alkaline Phosphatase 56U/L (25-150) 40U/L (25-150) Total Protein 6.8g/dL (6.4-8.4) 4.4g/dL (6.4-8.4) Albumin 4.1g/dL (3.4-5.0) 3.1g/dL (3.4-5.0) Lipase 19U/L (13-60) Urine Color Yellow (YELLOW) Urine Appearance Turbid (CLEAR,HAZY) Urine pH 7.5 (5.0-8.0) Urine Specific [place] 1.018 (1.003-1.035) Urine Protein Negativemg/dL (NEG,TRACE) Urine Glucose (UA) Negativemg/dL (NEGATIVE) Urine Ketones 40mg/dL (NEGATIVE) Urine Occult Blood Negative (NEGATIVE) Urine Nitrite Negative (NEGATIVE) Urine Bilirubin Negative (NEGATIVE) Urine Urobilinogen 2mg/dL (NORMAL) Urine Leukocyte Esterase Moderate (NEGATIVE) Urine RBC 0-2/hpf (0-2) Urine WBC 0-5/hpf (0-5) Urine Epithelial Cells Few/hpf (NONE-MOD) Urine Crystals Amorphous phosphates Urine Bacteria Few/hpf (NONE-FEW) Urine Hyaline Casts None/lpf (NONE) Urine Granular Casts None seen (NONE SEEN) Urine Waxy Casts None seen (NONE SEEN) Urine Red Blood Cell Casts None seen (NONE SEEN) Urine White Blood Cell Casts None seen (NONE SEEN) Urine Mucus Present (None Seen) Urine Trichomonas None seen (NONE SEEN) Urine Yeast None (NONE SEEN) Urinalysis Comment None Urine Culture Reflexed Indicated Microbiology 07/11/17 Urine Culture - Mixed Urogenital Armando Result Diagram: 07/12/17 0607 07/12/17 0607 X-Rays, CTs and MRIs 07/12/17 - CT ABDOMEN AND PELVIS WITH CONTRAST IMPRESSION: 1. Gastric lap band has slipped distally with a resulting small hiatal hernia which contains oral contrast and may place the patient at risk for aspiration. 2. Wedge-shaped area of low-density liver most consistent with fatty infiltration of the liver. Underlying malignancy is unlikely. Recommend MRI with and without contrast for confirmation. 3. There is minimal intrahepatic biliary ductal dilatation with stable prominence of the extrahepatic bile duct. No obstructing lesion identified. MRCP could evaluate this finding if needed and could be performed at the same visit as the recommended abdominal MRI. 4. There are no discrepancies with the preliminary report. Approved by: Musa Drake M.D. on 07/12/2017 at 7:21 Additional Diagnostics 07/12/17 - Esophagogastroduodenoscopy (EGD) with biopsy. PREOPERATIVE DIAGNOSIS(ES): Hematemesis. POSTOPERATIVE DIAGNOSIS(ES): 1. Mild distal esophagitis. 2. Mild nonerosive gastritis. 3. Status post lap band in good position and intact seen on retroflexion. FINDINGS: Upon inspection of the esophagus, there was mild distal esophagitis that was seen. Z-line located 40 cm from incisors. Upon entering the stomach, there was a mild nonerosive gastritis that was seen. No masses or ulcers were seen. Retroflexion showed an intact lap band that was placed. Duodenal bulb, 1st and 2nd portion normal. Biopsies taken in the antrum and body of the stomach. IMPRESSIONS: 1. Intact lap band. 2. Mild distal esophagitis. 3. Mild nonerosive gastritis. RECOMMENDATION: 1. Await pathology results. 2. Please stop Protonix drip and transition to Protonix 40 mg by mouth twice a day. 3. Okay to start clear liquid diet. Advance as tolerated. Reginaldo Simon MD 07/12/17 1117 Assessment & Plan 46y/o female with a history of gastric ulcers and lap band placement who presented to the emergency department with the complaint of abdominal pain with coffee-ground emesis. GI consulted for probable upper GI bleeding. Acute on chronic abdominal pain with coffee-ground emesis in a patient with a lap band and history of gastric ulcers. -Likely secondary to gastritis. EGD on 07/12 showed an intact lap band in good position, mild distal esophagitis and mild nonerosive gastritis. -Abd CT on 07/12 showing a gastric lap band that has slipped distally with a resulting small hiatal hernia. Possible urinary tract infection. -Potentially contributing to abdominal pain. Patient reports mild dysuria and increased urinary frequency for the past several weeks. -UA with moderate leukocyte esterase, few bacteria and urine culture with mixed urogenital armando -Antibiotics per primary medicine team. RECOMMENDATIONS: -Protonix 40mg PO bid -Advance diet as tolerated -As long as Hb/Hct stable, okay to discharge from GI standpoint. -Pathology results pending -Referral to a bariatric surgeon per Dr. Pollack from General Surgery Additional problems managed by primary hospitalist. Depression Sciatica Insomnia . Pain Evaluation: Adequate Pain Control GI Prophylaxis: Proton Pump Inhibitor (Protonix drip) VTE Mechanical Devices: Intermittant Pneumatic CD Resuscitation Status: CPR: Attempt Resuscitation Kiera Maza DO Jul 13, 2017 08:14 VTE Mechanical Devices: Intermittant Pneumatic CD Resuscitation Status: CPR: Attempt Resuscitation Kiera Maza DO Jul 13, 2017 08:14
[2017-07-13] MEDS: buPROPion XL 300 mg ER24 Tablet PO SCH (12:16)
[2017-07-13 14:30] LABS: APPEARANCE,URINE HAZY (CLEAR,HAZY); COLOR,URINE YELLOW (YELLOW); OCCULT BLOOD,URINE NEGATIVE (NEGATIVE); PH,URINE 5.5 (5.0-8.0)
[2017-07-13 14:32] LABS: UROBILINOGEN,URINE NORMAL (NORMAL)
[2017-07-13] MEDS ORDERED: MetoCLOpramide 1 mg/mL 10 mL UDC Syrup PO ONE (14:45)
[2017-07-13] MEDS ORDERED: Promethazine 12.5 mg Rectal Suppository RECTAL ONE (14:55)
[2017-07-13] MEDS ORDERED: Promethazine 25 mg/mL Inj IM ONE (16:50)
[2017-07-13] MEDS ORDERED: Promethazine 25 mg/mL Inj IM PRN (16:50)
[2017-07-13] MEDS ORDERED: Promethazine Inj 25 MG in Dextrose 5%-Pha MIX 50 ML IV ONE (18:45)
--- NOTE | 2017-07-13 19:10 | NUR ---
Nausea/pain pt has been vomiting all shift with minimal relief with > 500ml brown liquid. Numerous anti-emetics administered, only one that work was Reglan. Pt has also been c/o 06/29 burning abdominal pain. Pt stated that Toradol did not work and dc'd Ag[facility]. aware
--- NOTE | 2017-07-13 19:30 | PCM.PNMED ---
Subjective Date of Service Jul 13, 2017 Subjective Patient was seen and examined at bedside today. Patient denies any chest pain, shortness of breath, diarrhea. Patient complain significantly of nausea and vomiting today. Patient does seem to be a bit tearful and a little histrionic today as well. Overnight events: None Exam Vital Signs Vital Sign - Last Date Time Temp Pulse Resp B/P Pulse Ox O2 Delivery O2 Flow Rate FiO2 07/13/17 16:25 37.1 83 18 186/70 97 Room Air Intake and Output 07/12/17 07/12/17 07/13/17 Cumulative From/Thru 15:00 23:00 07:00 07/11/17 17:46 - 07/13/17 06:28 Intake Total 200 ml 2304 ml 1154 ml 5908 ml Output Total 550 ml 550 ml Balance 200 ml 1754 ml 1154 ml 5358 ml Intake Oral 318 ml 318 ml IV Total 200 ml 1986 ml 1154 ml 5590 ml Output Urine Total 550 ml 550 ml # Bowel Movements 0 0 Exam Physical Exam: GEN: Patient was awake, alert, responding appropriately to questions HEENT: Pupils equal round and reactive to light, extraocular eye muscles intact , Neck soft supple, trachea midline, nomocephalic/atraumatic CV: +S1/S2, regular rate and rhythm, no murmurs auscultated Respiratory: CTAB, no wheezes, rales, rhonchi GI: +bowel sounds x4, soft, compressible, mild tenderness to palpation EXT: no clubbing, cyanosis, edema Neuro: Cranial nerves II-XII grossly intact Psych: mood and affect were appropriate IVs and Medications Medications Reviewed: Medications were reviewed in detail Lab and Diagnostics Result Diagram: 07/12/17 0607 07/12/17 0607 X-Rays, CTs and MRIs 07/12/17 - CT ABDOMEN AND PELVIS WITH CONTRAST IMPRESSION: 1. Gastric lap band has slipped distally with a resulting small hiatal hernia which contains oral contrast and may place the patient at risk for aspiration. 2. Wedge-shaped area of low-density liver most consistent with fatty infiltration of the liver. Underlying malignancy is unlikely. Recommend MRI with and without contrast for confirmation. 3. There is minimal intrahepatic biliary ductal dilatation with stable prominence of the extrahepatic bile duct. No obstructing lesion identified. MRCP could evaluate this finding if needed and could be performed at the same visit as the recommended abdominal MRI. 4. There are no discrepancies with the preliminary report. Approved by: Musa Drake M.D. on 07/12/2017 at 7:21 Additional Diagnostics 07/12/17 - Esophagogastroduodenoscopy (EGD) with biopsy. PREOPERATIVE DIAGNOSIS(ES): Hematemesis. POSTOPERATIVE DIAGNOSIS(ES): 1. Mild distal esophagitis. 2. Mild nonerosive gastritis. 3. Status post lap band in good position and intact seen on retroflexion. FINDINGS: Upon inspection of the esophagus, there was mild distal esophagitis that was seen. Z-line located 40 cm from incisors. Upon entering the stomach, there was a mild nonerosive gastritis that was seen. No masses or ulcers were seen. Retroflexion showed an intact lap band that was placed. Duodenal bulb, 1st and 2nd portion normal. Biopsies taken in the antrum and body of the stomach. IMPRESSIONS: 1. Intact lap band. 2. Mild distal esophagitis. 3. Mild nonerosive gastritis. RECOMMENDATION: 1. Await pathology results. 2. Please stop Protonix drip and transition to Protonix 40 mg by mouth twice a day. 3. Okay to start clear liquid diet. Advance as tolerated. Reginaldo Simon MD 07/12/17 1117 Assessment & Plan Alyx Muñoz is a 46-year-old female with a history of gastric ulcers and lap band placement who presented to the emergency department complaining of abdominal pain that started yesterday with one episode of coffee-ground hematemesis. Upper GI bleed, present on admission. Acute. Ongoing. -Due to gastritis, but there is a question of lap band placement/possible erosion - Patient is supposed to be taking pantoprazole 40 mg twice a day with questionable compliance - Dr. Simon of Gastroenterology was consulted and EGD was done today showing gastritis - Dr. Pollack of Surgery consulted, also feels that the patient's pain could be possibly secondary to the LAP-BAND however patient refused having this removed, surgery recommends the patient follow up with bariatric surgery -Protonix 40 mg IV twice a day, consider restarting protonic strip -Continue Phenergan and Benadryl, scopolamine patch -Patient is on a clear liquid diet - H&H stable thus far; will trend with AM labs Abdominal pain, present on admission. Acute. Ongoing. - Secondary to gastritis with persistent nausea and vomiting, but there is a question of lap band placement/possible erosion - Continue home fentanyl patch -Discontinue further narcotic medications as the patient could potentially have gastroparesis -Toradol for pain Depression, present on admission. Chronic. - Continue bupropion 300 mg daily -1 mg of Ativan 1 dose Sciatica, present on admission. Chronic. - Continue home fentanyl patch - Holding home PO Dilaudid; resume when appropriate Insomnia, present on admission. Chronic. - Continue zolpidem 10 mg at night when able to tolerate by mouth Disposition: The patient is currently experiencing significant nausea and vomiting and is unable to tolerate anything by mouth at this time. Would consider reconsultation GI to have them, take another look at this patient. If the patient continues to have severe vomiting would consider changing her from IV Protonix twice a day back to protonix drip. At this time the patient is willing to have her LAP-BAND looked at further for possible removal. The patient now currently has a scopolamine patch and states that Phenergan has worked for her in the past compared to Melvin. GI Prophylaxis: Proton Pump Inhibitor (Protonix drip) VTE Mechanical Devices: Intermittant Pneumatic CD Resuscitation Status: CPR: Attempt Resuscitation Elyse Ramsey DO Jul 13, 2017 19:30
[2017-07-13] MEDS: Pantoprazole 4 mg/mL 10 mL Inj IVPUSH SCH (20:04)
[2017-07-13] MEDS ORDERED: Promethazine Inj 50 MG in 0.9% Sodium Chloride-Pha MIX 100 ML IV ONE (20:30)
[2017-07-13] MEDS: HYDROmorphone 1 mg/mL Inj IVPUSH PRN (23:01)
[2017-07-14] MEDS: MetoCLOpramide 5 mg/mL 2 mL Inj IVPUSH PRN ×4 (00:48→18:25)
[2017-07-14] MEDS: Sodium Chloride LOK Flush 10 mL Syringe IV SCH ×3 (00:52→17:15)
[2017-07-14] MEDS: HYDROmorphone 1 mg/mL Inj IVPUSH PRN ×5 (02:32→19:57)
[2017-07-14] MEDS: 0.9% Sodium Chloride 1,000 ML IV SCH ×3 (03:37→14:47)
[2017-07-14 04:48] VITALS: BP 153/79; PULSE 83; RESP 20; O2SAT 98
--- NOTE | 2017-07-14 06:00 | NUR ---
Nausea/Anxiety Pt having increased nausea and vomiting at change of shift. Pt vomiting white frothy emesis. Medicated pt with 1 mg IV ativan, phenergan, protonix, and benadryl per MD orders. Pt continuea to have nausea, pt becoming more anxious. Pt up walking around room, slightly unsteady on her feet. Pt requesting IV dilaudid. MD paged. Orders to give another 1 mg IV ativan. Pt and pt's getting agitated, asking for dilaudid, explained to pt what MD had ordered, pt wanting to leave AMA. Spoke with MD and rn relief charge, orders received for 1 mg IV dilaudid Q4 hours PRN. Medicated pt with 1 mg IV dilaudid, pt resting in bed after medication admin, FELDT score 0. Continued to medicate pt Q4 hours with dilaudid for pain control this shift. Call light within reach, frequent rounding.
[2017-07-14 08:02] LABS: BASOPHILS % (AUTO) 0.6 % (0-3); EOSINOPHILS % (AUTO) 0.2 % (0-5); MONOCYTES % (AUTO) 7.4 % (4-12); Mean Corpuscular Hemoglobin 33.5 pg (27.0-35.0); Mean Corpuscular Volume 94.8 fL (81-100); NEUTROPHILS % (AUTO) 77.4 % (40-74); Platelet Count 250 bil/L (150-400)
[2017-07-14] MEDS: buPROPion XL 300 mg ER24 Tablet PO SCH (08:45)
[2017-07-14] MEDS: Pantoprazole 4 mg/mL 10 mL Inj IVPUSH SCH ×2 (08:45→17:15)
[2017-07-14] MEDS: Ondansetron 2 mg/mL 2 mL Inj IVPUSH PRN ×3 (08:46→19:58)
[2017-07-14 09:31] VITALS: BP 159/94; PULSE 73; RESP 18; O2SAT 99
--- NOTE | 2017-07-14 11:19 | NUR ---
NUTRITION ASSESSMENT: ASSESS: 46YO F admit with GI bleed, n/v and poor po x 1-2mos, surgery consulted appears gastric lap band has slipped distally with hiatal hernia, possible reconsultation for potential removal of lap band, depending upon pt. NPO/Clear liquid x 3 days PMHX: Gastric lap band, gastric ulcers DIET: Clear Liquid. PO bites LABS: Reviewed. Alb 3.5 MEDS:Reviewed GI:No BM WEIGHT:65.6kg BMI: 22.7 EST.NEEDS:2170-0667 kcal; 65-80g protein(25-30kcal/kg;1.0-1.2g/kg pro) NUTRITION DIAGNOSIS: (1) Inadequate oral intake related to altered GI tract function as evidenced by minimal po intake x 3 days with decreased appetite x 1-2mos. INTERVENTION: (1) Monitor for surgery, potential diet advancement. (2) Consider nutrition support (TPN) if diet unable to be advanced next 2-3days. TPN recommendations as follows: 100g dextrose, 50g protein, 30g lipids providing 840kcal,50g protein meeting 50% kcal needs, 75% protein needs. Advancing as tolerated to fully meet estimated needs. MONITOR/EVALUATE: PO intake/diet advancement, GI status, labs. F/U per high risk.
--- NOTE | 2017-07-14 12:31 | PCM.PNSURG ---
Subjective Visit Information: Reason for Visit Upper Gi Bleed, Anemia Surgery/Surgery Date Post-Op Day # Date of Admission: Jul 11, 2017 at 21:19 Hospital Day # Subjective: Unable to tolerate much PO, liquid or solid. I reviewed her EGD images, no ulcers or erosions seen. A portion of stomach appears prolapsed above her lap band. Objective Vital Sign- Last 8 Hours Date Time Temp Pulse Resp B/P Pulse Ox O2 Delivery O2 Flow Rate FiO2 07/14/17 09:31 37.3 73 18 159/94 99 Room Air 07/14/17 04:48 37.2 83 20 153/79 98 Room Air Intake and Output- Last 8 Hour 07/14/17 Cumulative From/Thru 07:00 07/11/17 17:46 - 07/14/17 06:22 Intake Total 1042 ml 7880 ml Output Total 1650 ml Balance 1042 ml 6230 ml Intake Oral 618 ml IV Total 1042 ml 7262 ml Output Urine Total 1150 ml Emesis 500 ml # Voids 3 # Bowel Movements 0 General: Alert, Oriented X3, Cooperative, No Acute Distress Abdomen: Soft, Non-tender Result Diagram: 07/14/17 0742 07/14/17 0742 Assessment & Plan Impression 46f with prolapse of a portion of gastric fundus above her lap band causing poor PO tolerance. Problems: Plan 1. I tried to decompress the band today with a Anaya needle even though she verbally reported it had been previously decompressed. She was right, there was no fluid in it. 2. Based on CT and EGD images I believe she has stricturing of the proximal stomach due to the prolapse of the fundus through the band and should be evaluated by a bariatric surgeon for possible removal vs. repositioning. Resuscitation Status: CPR: Attempt Resuscitation Lety Pollack MD Jul 14, 2017 12:31
[2017-07-14 14:16] VITALS: BP 117/79; PULSE 78; RESP 18; O2SAT 98
--- NOTE | 2017-07-14 16:05 | NUR ---
Pain/Nausea: Patient complains of abdominal pain 8/10 on pain scale and nausea throughout shift. Dilaudid and nausea meds (Reglan or Zofran) administered as needed per orders. On reassessments, patient resting w/eyes closed, RR regular appears to be sleeping. Awakens to voice. When patient wakes, she will ask for more Dilaudid, Ativan and nausea medications. Frequent reminders to patient of time frame between medication administration. At one point, patient feel asleep in mid sentence while conversing with the RN. Encouraged to increase PO intake as tolerated. Patient asked for hot tea, however did not drink any of it. Experienced one episode of vomiting a small amount of frothy clear liquid during this shift thus far. Addendum: 07/14/17 at 1839 by CIELO SHULTZ RN Patient attempted few bites of jello and sips of juice. Experienced another episode of vomiting approx 60mls. Reglan administered.
--- NOTE | 2017-07-14 18:06 | PCM.PNMED ---
Subjective Date of Service Jul 14, 2017 Subjective Reports continued nausea. No further vomiting this morning. Denies any other new issues/complaints Exam Vital Signs Vital Sign - Last Date Time Temp Pulse Resp B/P Pulse Ox O2 Delivery O2 Flow Rate FiO2 07/14/17 14:16 37.0 78 18 117/79 98 Room Air Intake and Output 07/13/17 07/13/17 07/14/17 Cumulative From/Thru 15:00 23:00 07:00 07/11/17 17:46 - 07/14/17 06:22 Intake Total 200 ml 730 ml 1042 ml 7880 ml Output Total 600 ml 500 ml 1650 ml Balance -400 ml 230 ml 1042 ml 6230 ml Intake Oral 200 ml 100 ml 618 ml IV Total 630 ml 1042 ml 7262 ml Output Urine Total 600 ml 1150 ml Emesis 500 ml 500 ml # Voids 3 3 # Bowel Movements 0 0 General: Alert, Cooperative, No Acute Distress Head: Normal Eyes: Scleral Anicteric Nose: Mucous Membr Moist/[place] Mouth: Mucous Membr Moist/[place] Neck: Supple Chest & Lungs: Chest Wall Normal, Clear to auscultation & percussion Cardiovascular: Regular Rate/Rhythm Abdomen: Non-tender, Non-distended, Normoactive bowel tones, Soft Extremities: No cyanosis/clubbing/edma bilat Neurological: Grossly Neurologically Intact, Normal Speech IVs and Medications Medications Reviewed: Medications were reviewed in detail Lab and Diagnostics Result Diagram: 07/14/17 0742 07/14/17 0742 X-Rays, CTs and MRIs 07/12/17 - CT ABDOMEN AND PELVIS WITH CONTRAST IMPRESSION: 1. Gastric lap band has slipped distally with a resulting small hiatal hernia which contains oral contrast and may place the patient at risk for aspiration. 2. Wedge-shaped area of low-density liver most consistent with fatty infiltration of the liver. Underlying malignancy is unlikely. Recommend MRI with and without contrast for confirmation. 3. There is minimal intrahepatic biliary ductal dilatation with stable prominence of the extrahepatic bile duct. No obstructing lesion identified. MRCP could evaluate this finding if needed and could be performed at the same visit as the recommended abdominal MRI. 4. There are no discrepancies with the preliminary report. Approved by: Musa Drake M.D. on 07/12/2017 at 7:21 Additional Diagnostics 07/12/17 - Esophagogastroduodenoscopy (EGD) with biopsy. PREOPERATIVE DIAGNOSIS(ES): Hematemesis. POSTOPERATIVE DIAGNOSIS(ES): 1. Mild distal esophagitis. 2. Mild nonerosive gastritis. 3. Status post lap band in good position and intact seen on retroflexion. FINDINGS: Upon inspection of the esophagus, there was mild distal esophagitis that was seen. Z-line located 40 cm from incisors. Upon entering the stomach, there was a mild nonerosive gastritis that was seen. No masses or ulcers were seen. Retroflexion showed an intact lap band that was placed. Duodenal bulb, 1st and 2nd portion normal. Biopsies taken in the antrum and body of the stomach. IMPRESSIONS: 1. Intact lap band. 2. Mild distal esophagitis. 3. Mild nonerosive gastritis. RECOMMENDATION: 1. Await pathology results. 2. Please stop Protonix drip and transition to Protonix 40 mg by mouth twice a day. 3. Okay to start clear liquid diet. Advance as tolerated. Reginaldo Simon MD 07/12/17 1117 Assessment & Plan 46-year-old female with a history of gastric ulcers and lap band placement who presented to the emergency department complaining of abdominal pain that started yesterday with one episode of coffee-ground hematemesis. # Upper GI bleed, present on admission. Acute. Ongoing. - Due to gastritis, but there is a question of lap band placement/possible erosion - Patient is supposed to be taking pantoprazole 40 mg twice a day with questionable compliance - Post EGD on 07/12/17 showing: "Mild distal esophagitis. Mild nonerosive gastritis" - Continue Protonix - Continue Phenergan and Benadryl, scopolamine patch - Clear liquid diet and advance as tolerated - H&H stable thus far; will trend with AM labs # Abdominal pain, nausea/vomiting, present on admission. Acute. Ongoing. - Patient is post lap band surgery in [place] - Appreciate surgery consult. Will followup with recs - Per Dr. Pollack: "Based on CT and EGD images I believe she has stricturing of the proximal stomach due to the prolapse of the fundus through the band and should be evaluated by a bariatric surgeon for possible removal vs. repositioning." - Will attempt transfer to another hospital with available bariatric surgeon # Depression, present on admission. Chronic. Presumed stable. - Continue bupropion 300 mg daily # Sciatica, present on admission. Chronic. Stable. - Continue home fentanyl patch - Holding home PO Dilaudid # Insomnia, present on admission. Chronic. - Continue zolpidem 10 mg at night when able to tolerate by mouth Dispo: Likely transfer in am GI Prophylaxis: Proton Pump Inhibitor (Protonix drip) VTE Mechanical Devices: Intermittant Pneumatic CD Resuscitation Status: CPR: Attempt Resuscitation Kishor Mane Jul 14, 2017 18:06
[2017-07-14 18:10] VITALS: BP 197/111; PULSE 103; RESP 20; O2SAT 100
[2017-07-14 18:22] VITALS: BP 158/80; PULSE 74
[2017-07-14 20:18] VITALS: BP 120/78; PULSE 92; RESP 18; O2SAT 97
[2017-07-15] MEDS: HYDROmorphone 1 mg/mL Inj IVPUSH PRN ×6 (01:10→23:38)
[2017-07-15] MEDS: Sodium Chloride LOK Flush 10 mL Syringe IV SCH ×4 (01:12→23:59)
[2017-07-15] MEDS: Ondansetron 2 mg/mL 2 mL Inj IVPUSH PRN ×5 (01:14→23:39)
[2017-07-15] MEDS: MetoCLOpramide 5 mg/mL 2 mL Inj IVPUSH PRN ×3 (01:16→20:38)
[2017-07-15] MEDS: 0.9% Sodium Chloride 1,000 ML IV SCH ×4 (01:18→20:46)
--- NOTE | 2017-07-15 03:08 | NUR ---
Nausea Pt. had some emesis during an episode of nausea earlier in shift. Bile emesis. Pt. reports IV Zofran and IV Reglan are effective for nausea. Will continue to monitor.
[2017-07-15 04:35] VITALS: BP 121/79; PULSE 68; RESP 18; O2SAT 99
[2017-07-15] MEDS: Pantoprazole 4 mg/mL 10 mL Inj IVPUSH SCH ×2 (08:39→16:23)
[2017-07-15] MEDS: buPROPion XL 300 mg ER24 Tablet PO SCH (08:39)
[2017-07-15 13:08] VITALS: BP 108/70; PULSE 65; RESP 18; O2SAT 97
--- NOTE | 2017-07-15 16:27 | PCM.PNMED ---
Subjective Date of Service Jul 15, 2017 Subjective Reports continued nausea. No further vomiting this morning. Denies any other new issues/complaints Exam Vital Signs Vital Sign - Last Date Time Temp Pulse Resp B/P Pulse Ox O2 Delivery O2 Flow Rate FiO2 07/15/17 13:08 36.9 65 18 108/70 97 Room Air Intake and Output 07/14/17 07/14/17 07/15/17 Cumulative From/Thru 15:00 23:00 07:00 07/11/17 17:46 - 07/15/17 06:18 Intake Total 0 ml 1200 ml 1037 ml 50819 ml Output Total 700 ml 1001 ml 600 ml 3951 ml Balance -700 ml 199 ml 437 ml 6166 ml Intake Oral 0 ml 100 ml 0 ml 718 ml IV Total 1100 ml 1037 ml 9399 ml Output Urine Total 700 ml 1000 ml 600 ml 3450 ml Emesis 1 ml 501 ml # Voids 3 # Bowel Movements 0 0 0 Exam General: Alert, Cooperative, No Acute Distress Head: Normal Eyes: Scleral Anicteric Nose: Mucous Membr Moist/[place] Mouth: Mucous Membr Moist/[place] Neck: Supple Chest & Lungs: Chest Wall Normal, Clear to auscultation bilat Cardiovascular: Regular Rate/Rhythm Abdomen: Non-tender, Non-distended, Normoactive bowel tones, Soft Extremities: No cyanosis/clubbing/edema bilat Neurological: Grossly Neurologically Intact, Normal Speech IVs and Medications Medications Reviewed: Medications were reviewed in detail Lab and Diagnostics Result Diagram: 07/14/17 0742 07/14/17 0742 X-Rays, CTs and MRIs 07/12/17 - CT ABDOMEN AND PELVIS WITH CONTRAST IMPRESSION: 1. Gastric lap band has slipped distally with a resulting small hiatal hernia which contains oral contrast and may place the patient at risk for aspiration. 2. Wedge-shaped area of low-density liver most consistent with fatty infiltration of the liver. Underlying malignancy is unlikely. Recommend MRI with and without contrast for confirmation. 3. There is minimal intrahepatic biliary ductal dilatation with stable prominence of the extrahepatic bile duct. No obstructing lesion identified. MRCP could evaluate this finding if needed and could be performed at the same visit as the recommended abdominal MRI. 4. There are no discrepancies with the preliminary report. Approved by: Musa Drake M.D. on 07/12/2017 at 7:21 Additional Diagnostics 07/12/17 - Esophagogastroduodenoscopy (EGD) with biopsy. PREOPERATIVE DIAGNOSIS(ES): Hematemesis. POSTOPERATIVE DIAGNOSIS(ES): 1. Mild distal esophagitis. 2. Mild nonerosive gastritis. 3. Status post lap band in good position and intact seen on retroflexion. FINDINGS: Upon inspection of the esophagus, there was mild distal esophagitis that was seen. Z-line located 40 cm from incisors. Upon entering the stomach, there was a mild nonerosive gastritis that was seen. No masses or ulcers were seen. Retroflexion showed an intact lap band that was placed. Duodenal bulb, 1st and 2nd portion normal. Biopsies taken in the antrum and body of the stomach. IMPRESSIONS: 1. Intact lap band. 2. Mild distal esophagitis. 3. Mild nonerosive gastritis. RECOMMENDATION: 1. Await pathology results. 2. Please stop Protonix drip and transition to Protonix 40 mg by mouth twice a day. 3. Okay to start clear liquid diet. Advance as tolerated. Reginaldo Simon MD 07/12/17 1117 Assessment & Plan 46-year-old female with a history of gastric ulcers and lap band placement who presented to the emergency department complaining of abdominal pain that started yesterday with one episode of coffee-ground hematemesis. # Abdominal pain, nausea/vomiting, present on admission. Acute. Ongoing. - Patient is post lap band surgery in [place] - Appreciate surgery consult. Will followup with recs - Per Dr. Pollack: "Based on CT and EGD images I believe she has stricturing of the proximal stomach due to the prolapse of the fundus through the band and should be evaluated by a bariatric surgeon for possible removal vs. repositioning." - Made calls to several hospitals and finally have Dr. Dias (bariatric surgeon) at accepting the patient for transfer on 07/16/17 pending bed availability for likely removal of the band on Monday - Continue with supportive care including IV Dilaudid prn for now # Upper GI bleed, present on admission. Acute. Ongoing. - Due to gastritis, but there is a question of lap band placement/possible erosion - Patient is supposed to be taking pantoprazole 40 mg twice a day with questionable compliance - Post EGD on 07/12/17 showing: "Mild distal esophagitis. Mild nonerosive gastritis" - Continue Protonix - Continue Phenergan and Benadryl, scopolamine patch - Clear liquid diet and advance as tolerated - H&H stable thus far; will trend with AM labs # Depression, present on admission. Chronic. Presumed stable. - Continue bupropion 300 mg daily # Sciatica, present on admission. Chronic. Stable. - Continue home fentanyl patch - Holding home PO Dilaudid # Insomnia, present on admission. Chronic. - Continue zolpidem 10 mg at night when able to tolerate by mouth Dispo: Likely transfer to in am GI Prophylaxis: Proton Pump Inhibitor (Protonix drip) VTE Mechanical Devices: Intermittant Pneumatic CD Resuscitation Status: CPR: Attempt Resuscitation Kishor Mane Jul 15, 2017 16:27
[2017-07-15] MEDS ORDERED: HYDROmorphone 1 mg/mL Inj IVPUSH ONE (16:45)
--- NOTE | 2017-07-15 18:08 | NUR ---
Nausea/Pain Patient continues to report nausea and pain. Patient reporting a scant amount of bile emesis this morning. Frequency of pain medications increased this afternoon. Patient may transfer to tomorrow for bariatric lap band management.
[2017-07-15 20:19] VITALS: BP 146/91; PULSE 67; RESP 18; O2SAT 99
[2017-07-16] MEDS: HYDROmorphone 1 mg/mL Inj IVPUSH PRN ×5 (02:45→14:40)
[2017-07-16] MEDS: MetoCLOpramide 5 mg/mL 2 mL Inj IVPUSH PRN ×2 (02:45→09:12)
[2017-07-16] MEDS: Ondansetron 2 mg/mL 2 mL Inj IVPUSH PRN ×3 (03:44→14:40)
[2017-07-16 04:25] VITALS: BP 115/72; PULSE 77; RESP 18; O2SAT 97
--- NOTE | 2017-07-16 06:06 | NUR ---
GI Pt c/o constantly abdominal pain 7-10/10, and nausea, vomiting small amount of yellow vomitus, unable tolerate oral clear fluids, and anxious. Pt requests prn meds to be given when it is due:Dilaudid 1mg q4h for pain, Zofran 8mg q4h and Reglan 5mg q6h for nausea, Lorazepam 1mg q3h for anxiety and sleep and pain. Meds given per pt requests, pain improved some, nausea improve slightly, pt fall asleep after meds given. 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 Abdomen soft, generalized tenderness, mostly at upper quadrant, no rebound tenderness, BT active,did not pass flatus and no BM for a week per pt.
[2017-07-16] MEDS: 0.9% Sodium Chloride 1,000 ML IV SCH ×2 (07:40)
[2017-07-16] MEDS: Sodium Chloride LOK Flush 10 mL Syringe IV SCH (07:40)
[2017-07-16 08:40] VITALS: BP 137/84; PULSE 72; RESP 20; O2SAT 98
[2017-07-16] MEDS: buPROPion XL 300 mg ER24 Tablet PO SCH (08:54)
[2017-07-16] MEDS: Pantoprazole 4 mg/mL 10 mL Inj IVPUSH SCH (08:54)
--- NOTE | 2017-07-16 12:17 | NUR ---
Social Work- Pending Transfer Data: EMR reviewed. Pt is on day 5 of hospitalization. Pt discussed in multidisciplinary rounds, pt is not medically stable for d/c and will require transfer to [facility]. Pt's accepting doctor is Dr. Dias. to facilitate transfer. No SW needs identified in rounds. SW continues to follow to assist as necessary Assessment: Pt who medically requires transfer to . Plan: Pt to tx to [facility] pending bed, Dr. Dias to accept pt. No SW needs identified in rounds. SW continues to follow to assist as necessary. Rhonda Palma, JOCKEY AGENT
--- NOTE | 2017-07-16 14:02 | PCM.DIMED ---
Discharge Instructions Date of Service Jul 16, 2017 Dates of Hospitalization Jul 11, 2017 at 21:19 Discharge Diagnosis Discharge Diagnosis # Post lap band surgery in [place] about 3 years ago - Suspected s stricturing of the proximal stomach due to the prolapse of the fundus through the band # Abdominal pain, nausea/vomiting, present on admission. # Upper GI bleed, present on admission. Resolved - Post esophagogastroduodenoscopy (EGD) on 07/12/17 showing: "Mild distal esophagitis. Mild nonerosive gastritis" # Depression, present on admission. Chronic. Presumed stable. # Chronic sciatica, present on admission. Stable. # Chronic insomnia, present on admission. Stable. Kishor Mane Jul 16, 2017 14:02
--- NOTE | 2017-07-16 14:08 | PCM.DC.MED ---
Discharge Summary Date of Service Jul 16, 2017 Dates of Hospitalization Date of Hospital Admission Jul 11, 2017 at 21:19 Date of Discharge: Jul 16, 2017 Providers: Admitting Physician: Dusty Kenny MD Primary Care Physician: Adriel Attending Physician: Kishor Mane Diagnosis at Time of Discharge Diagnosis at Time of Discharge # Post lap band surgery in [place] about 3 years ago - Suspected s stricturing of the proximal stomach due to the prolapse of the fundus through the band # Abdominal pain, nausea/vomiting, present on admission. # Upper GI bleed, present on admission. Resolved - Post esophagogastroduodenoscopy (EGD) on 07/12/17 showing: "Mild distal esophagitis. Mild nonerosive gastritis" # Depression, present on admission. Chronic. Presumed stable. # Chronic sciatica, present on admission. Stable. # Chronic insomnia, present on admission. Stable. Consultations 1. GI (Dr. Simon) 2. Surgery (Dr. Pollack) Procedures XRay, CTs & MRIs 07/12/17 - CT ABDOMEN AND PELVIS WITH CONTRAST IMPRESSION: 1. Gastric lap band has slipped distally with a resulting small hiatal hernia which contains oral contrast and may place the patient at risk for aspiration. 2. Wedge-shaped area of low-density liver most consistent with fatty infiltration of the liver. Underlying malignancy is unlikely. Recommend MRI with and without contrast for confirmation. 3. There is minimal intrahepatic biliary ductal dilatation with stable prominence of the extrahepatic bile duct. No obstructing lesion identified. MRCP could evaluate this finding if needed and could be performed at the same visit as the recommended abdominal MRI. 4. There are no discrepancies with the preliminary report. Approved by: Musa Drake M.D. on 07/12/2017 at 7:21 Other Diagnostics 07/12/17 - Esophagogastroduodenoscopy (EGD) with biopsy. PREOPERATIVE DIAGNOSIS(ES): Hematemesis. POSTOPERATIVE DIAGNOSIS(ES): 1. Mild distal esophagitis. 2. Mild nonerosive gastritis. 3. Status post lap band in good position and intact seen on retroflexion. FINDINGS: Upon inspection of the esophagus, there was mild distal esophagitis that was seen. Z-line located 40 cm from incisors. Upon entering the stomach, there was a mild nonerosive gastritis that was seen. No masses or ulcers were seen. Retroflexion showed an intact lap band that was placed. Duodenal bulb, 1st and 2nd portion normal. Biopsies taken in the antrum and body of the stomach. IMPRESSIONS: 1. Intact lap band. 2. Mild distal esophagitis. 3. Mild nonerosive gastritis. RECOMMENDATION: 1. Await pathology results. 2. Please stop Protonix drip and transition to Protonix 40 mg by mouth twice a day. 3. Okay to start clear liquid diet. Advance as tolerated. Reginaldo Simon MD 07/12/17 1117 Brief History As noted in H&P by Dr. Márquez: Alyx Muñoz is a 46-year-old lady with a history of gastric ulcers and lap band placement who presented to the emergency department with the complaint of abdominal pain with coffee-ground emesis that started yesterday. She states that she has actually had intermittent abdominal pain with decreased appetite for several months. However, she notes that because she was loosing so much weight it was not bothersome to her. It wasn't until yesterday when the pain became more intense that she thought she better come in. Associated symptoms include fatigue, generalized weakness, decreased fluid intake and subjective chills. She denies chest pain, palpitations, diarrhea, melena or hematochezia. At presentation she was afebrile and vitals were normal. Labs including CBC, CMP , lipase and lactic acid were unremarkable. Abdominal CT showed a moderate hiatal hernia with the lap band around the gastric fundus rather than at the gastroesophageal junction and a mildly dilated common bile duct. Hospital Course # Abdominal pain, nausea/vomiting, present on admission. Acute. Ongoing. - Patient is post lap band surgery in [place] - Appreciate surgery consult. - Per Dr. Pollack: "Based on CT and EGD images I believe she has stricturing of the proximal stomach due to the prolapse of the fundus through the band and should be evaluated by a bariatric surgeon for possible removal vs. repositioning." - Dr. Dias (bariatric surgeon) at has graciously accepted the patient for transfer on 07/16/17 for likely removal of the band on 07/17/17 - She was continued with supportive care including IV pain medication and antiemetics as needed. # Presenting with report of acute coffee-ground emesis on admission, suspicious for acute upper GI bleed. - H/H remained stable during this hospital. - Post EGD on 07/12/17 showing: "Mild distal esophagitis. Mild nonerosive gastritis" - Continued Protonix during this hospital # Depression, present on admission. Chronic. Presumed stable. - Continued bupropion 300 mg daily # Sciatica, present on admission. Chronic. Stable. - Continued home fentanyl patch - Holding home PO Dilaudid # Insomnia, present on admission. Chronic. - Continued zolpidem 10 mg at night when able to tolerate by mouth Exam Vital Signs (Last) Date Time Temp Pulse Resp B/P Pulse Ox O2 Delivery O2 Flow Rate FiO2 07/16/17 08:40 36.9 72 20 137/84 98 Room Air Exam Lungs: CTA bilat CV: RRR Abd: Soft, ND, +BS Test 07/11/17 19:20 07/13/17 09:47 07/14/17 07:42 Prothrombin Time 10.3sec (8.1-12.5) Prothromb Time International Ratio 0.96ratio Lactic Acid Level 1.7mmol/L (0.4-2.0) Magnesium Level 2.3mg/dL (1.6-2.6) Lipase 19U/L (13-60) Urine Color Yellow (YELLOW) Urine Appearance Hazy (CLEAR,HAZY) Urine pH 5.5 (5.0-8.0) Urine Specific [place] 1.030 (1.003-1.035) Urine Protein Negativemg/dL (NEG,TRACE) Urine Glucose (UA) Negativemg/dL (NEGATIVE) Urine Ketones 40mg/dL (NEGATIVE) Urine Occult Blood Negative (NEGATIVE) Urine Nitrite Negative (NEGATIVE) Urine Bilirubin Negative (NEGATIVE) Urine Urobilinogen Normalmg/dL (NORMAL) Urine Leukocyte Esterase Negative (NEGATIVE) Urine RBC 0-2/hpf (0-2) Urine WBC 0-5/hpf (0-5) Urine Epithelial Cells Occasional/hpf (NONE-MOD) Urine Crystals None seen (NONE SEEN) Urine Bacteria None/hpf (NONE-FEW) Urine Hyaline Casts None/lpf (NONE) Urine Granular Casts None seen (NONE SEEN) Urine Waxy Casts None seen (NONE SEEN) Urine Red Blood Cell Casts None seen (NONE SEEN) Urine White Blood Cell Casts None seen (NONE SEEN) Urine Mucus None seen (None Seen) Urine Trichomonas None seen (NONE SEEN) Urine Yeast None (NONE SEEN) Urinalysis Comment None Urine Culture Reflexed Not indicated Hold Urine Received (Received) White Blood Count 5.3th/mm3 (3.8-10.1) Red Blood Count 4.27mil/mm3 (3.90-5.20) Hemoglobin 14.3g/dL (12.0-15.6) Hematocrit 40.5% (35.0-46.0) Mean Corpuscular Volume 94.8fL (81-100) Mean Corpuscular Hemoglobin 33.5pg (27.0-35.0) Mean Corpuscular Hemoglobin Concent 35.3% (32.0-37.0) Red Cell Distribution Width 12.9% (12.3-15.4) Platelet Count 250bil/L (150-400) Neutrophils (%) (Auto) 77.4% (40-74) Lymphocytes (%) (Auto) 14.2% (14-46) Monocytes (%) (Auto) 7.4% (4-12) Eosinophils (%) (Auto) 0.2% (0-5) Basophils (%) (Auto) 0.6% (0-3) Sodium Level 141mEq/L (134-144) Potassium Level 4.3mEq/L (3.5-5.2) Chloride Level 104mEq/L (97-108) Carbon Dioxide Level 18mmol/L (18-29) Blood Urea Nitrogen 5mg/dL (6-24) Creatinine 0.45mg/dL (0.57-1.00) Estimat Glomerular Filtration Rate 214mL/min (>59) Glucose Level 80mg/dL (60-99) Calcium Level 8.7mg/dL (8.5-10.1) Total Bilirubin 0.9mg/dL (0.0-1.2) Aspartate Amino Transf (AST/SGOT) 18U/L (0-50) Alanine Aminotransferase (ALT/SGPT) 14U/L (0-32) Alkaline Phosphatase 50U/L (25-150) Total Protein 5.2g/dL (6.4-8.4) Albumin 3.5g/dL (3.4-5.0) Discharge Medications Discharge Medications Bupropion ER (Bupropion ER) 300 Mg Tab.er.24h 300 MG PO DAILY (Reported) Fentanyl 50 mcg/hr Patch (Fentanyl 50 mcg/hr Patch) 50 mcg/hr Patch.td72 1 PATCH TOP Q2DAY (Reported) Pantoprazole DR (Pantoprazole DR) 40 Mg Tablet.dr 40 MG PO BIDAC (Reported) As needed Hydromorphone (Hydromorphone) 8 Mg Tablet 4-8 MG PO BID PRN PRN BREAKTHROUGH PAIN (Reported) Zolpidem (Zolpidem) 10 Mg Tablet 10 MG PO HS PRN PRN SLEEP (Reported) Followup Plan Disposition: Transfer to [facility] Time spent 30 min Kishor Mane Jul 16, 2017 14:08
[2017-07-16 14:32] VITALS: BP 135/86; PULSE 76; RESP 18; O2SAT 97
--- NOTE | 2017-07-16 14:54 | NUR ---
Meds given early Pt to be transferred to [facility]. Reuesting pain meds and nausea meds prior to transfer. Verbal confirmation received from MD to given 1mg dilaudid and 1mg ativan approx 20 min early. 8mg zofran also administered.
--- NOTE | 2017-07-16 14:55 | NUR ---
Transfer Pt transferred via BLS to [facility]. Report called to MONIQUE Craig. Pt alert and oriented. Pain and nausea meds given prior to transfer. All pt belongings sent with pt. Transfer paperwork provided to transporters.
--- NOTE | 2017-07-17 16:05 | PATH ---
SURGICAL PATHOLOGY Attending Physician:Reginaldo Simon MD CASE STATUS: Signed Out PATIENT NAME: SHEREE WALTON PID: [id number] : 1970 DATE COLLECTED:07/12/2017 19:06 SPECIMEN: 1: Stomach, Antrum, Biopsy 2: Gastric, Biopsy CLINICAL HISTORY: 1). ANTRUM BIOPSY 2). GASTRIC BIOPSY, RULE OUT H PYLORI FINAL DIAGNOSIS: 1-2. Designated "Antrum", Stomach, Biopsies: Gastric body mucosa with no diagnostic abnormality. Helicobacter organisms not identified. Negative for intestinal metaplasia, dysplasia or malignancy. ICD10: K92.0 GROSS DESCRIPTION: The specimen is received in two formalin filled containers labeled with the patient's name. 1). The specimen is labeled "antrum" and consists of 2 portions of tissue which aggregate to 0.2 x 0.2 x 0.2 CM. The specimen is entirely sedated in cassette 1A. 2). The specimen is labeled "body" and consists of 2 portions of tissue which aggregate to 0.2 x 0.2 x 0.2 CM. The specimen is entirely submitted in cassette 2A. 07/12/2017DC ICD-9 CODES: CPT CODES: 1: 44725 2: 16386 Electronically Signed Out Clif Alvares MD, Ph.D. Merged With [facility]ology [facility] [address], [place] [address] Technical component performed at [facility], [address] [place] [address] Ave[address], [address]
== END 2017-07-16 14:54 | disposition short-term general hospital (02) | DRG 393 ==
LOC: SED 17:41 → MPC 21:19
PROVIDERS: ADMIT Hospitalist; ATTEND Internal Medicine
PROC: 0DB68ZX Excision of Stomach, Via Natural or Artificial Opening Endoscopic, Diagnostic (ICD-10-PCS; principal; 2017-07-12 11:00)
DX: K95.09 Other complications of gastric band procedure (principal); K29.71 Gastritis, unspecified, with bleeding; F32.9 Major depressive disorder, single episode, unspecified; G47.00 Insomnia, unspecified; M54.30 Sciatica, unspecified side; R13.10 Dysphagia, unspecified; K44.9 Diaphragmatic hernia without obstruction or gangrene; K95.01 Infection due to gastric band procedure; Z91.19 Patient's noncompliance with other medical treatment and regimen; Z87.11 Personal history of peptic ulcer disease